=== PATIENT | female | born 1950 | race Hispanic/Latino ===

== ENCOUNTER 2020-07-18 23:01 | Inpatient (IN) | payer MEDICARE, MEDICAID, SELFPAY ==
--- NOTE | ~2020-07-18 | CT_ITS ---
EXAMINATION: CT abdomen pelvis wo con DATE: 07/19/2020 01:39 INDICATION: Abdominal pain, nausea TECHNIQUE: Computed tomography (CT) of the abdomen and pelvis was performed without intravenous contr ast. Automated exposure control and iterative reconstruction technique were employed. Exam dose: 123 5.42 mGy-cm total exam DLP. COMPARISON: 01/11/2018 KUB FINDINGS: Extensive abnormal interstitial lung disease with peripheral predominance suggesting usual interstitial pneumonia. Cardiomegaly. Coronary artery atherosclerosis. Status post cholecystectomy. No hepatic, splenic, pancreatic, and adrenal space-occupying mass lesion. Approximately 2 cm low-attenuation lower pole right renal lesion may be a cyst, with minimal peripher al calcification. Approximately 12 mm mid to lower left renal cyst is suggested. No ureteral calculus or hydroureteronephrosis. The urinary bladder is evacuated, with a Donohue cathete r, which may account for apparent thickening of the urinary bladder wall. Status post hysterectomy. There is extensive calcification of the abdominal aorta and right renal artery in particular. There a re calcifications of the celiac and superior mesenteric, left renal and inferior mesenteric arteries and iliac and femoral arteries. No abdominal aortic aneurysm. No intraperitoneal or retroperitoneal or pelvic mass lesion or adenopathy or ascites. Normal appendix. There is a prominent amount fecal material within the colon but no bowel obstruction , bowel wall thickening, pneumatosis or intraperitoneal free air. There is diverticulosis of the sigm oid colon but no CT evidence of diverticulitis. Small fat-containing left inguinal hernia. No suspicious osteolytic or osteoblastic lesions. Diffuse idiopathic skeletal hyperostosis of the tho racic spine. Prominent degenerative disease at L1-2 and moderately prominent degenerative disease at L5-S1. Promin ent degenerative change at the lumbar apophyseal joints. IMPRESSION: Cardiomegaly, coronary artery atherosclerosis Status post cholecystectomy Bilateral renal cysts Status post hysterectomy Sigmoid colon diverticulosis Normal appendix Reviewed, dictated and finalized at [facility]. Reviewed, dictated and finalized at [facility].
--- NOTE | ~2020-07-18 | US_ITS ---
US renal BI DATE: 07/19/2020 10:41 INDICATION: Acute renal failure TECHNIQUE: Real-time imaging of kidneys and urinary bladder COMPARISON: 07/19/2020 CT abdomen pelvis examination FINDINGS: Right kidney measures 9.4 cm approximate length, left kidney 9 cm. Approximately 2 cm cyst of the lower pole right kidney. No apparent renal mass lesion is noted otherw ise. No hydronephrosis of either kidney. There is a Donohue catheter within the evacuated urinary bladder which is not optimally evaluated. IMPRESSION: 2 cm lower pole right renal cyst No hydronephrosis of either kidney Reviewed, dictated and finalized at [facility] Reviewed, dictated and finalized at [facility].
[2020-07-18 23:01] VITALS: BP 130/67; PULSE 90; RESP 29; TEMP 36.6; O2SAT 100
[2020-07-18 23:11] VITALS: BP 130/67; PULSE 90; RESP 34; TEMP 36.6; O2SAT 100
--- NOTE | 2020-07-18 23:46 | ECG_ITS ---
Measurements Intervals [place] Rate: 94 P: 46 [place]: 161 QRS: -2 QRSD: 97 T: 96 QT: 320 QTc: 402 Interpretive Statements SINUS RHYTHM DELAYED PRECORDIAL R/S TRANSITION BORDERLINE ST-T WAVE ABNORMALITY- HIGH LATERAL LEADS BASELINE ARTIFACT- I, II, III, AVR, AVL, AVF, V1-V2, V4, V6 BORDERLINE ECG Electronically Signed On 07-19-2020 6:58:37 CDT by Kunal Gee D.O.
[2020-07-19] VITALS (14 sets, daily range): BP systolic 91–125; BP diastolic 42–71; PULSE 73–101; RESP 13–20; TEMP 35.8–37.1; O2SAT 97–100; BMI 38.6
[2020-07-19] MEDS: SODIUM CHLORIDE 0.9% IV 1,000 ML 500 ML IV CONT (00:46)
[2020-07-19] MEDS: fentaNYL CITRATE INJ (*CRX) 100 MCG/2 ML VIAL 50 MCG IV PUSH (00:47)
[2020-07-19 00:57] LABS: Basophils Percent Auto 0.6 % (0.2-1.2); Eosinophils Absolute Auto 0.1 K/mm3 (0-0.3); Eosinophils Percent Auto 1.1 % (0-4.4); Hematocrit 31.9 % (37.0-47.0); Hemoglobin 10.1 g/dL (12.0-15.0); Immature Granulocyte Absolute 0.02 K/mm3 (0.00-0.031); Immature Granulocyte Percent A 0.4 % (0-0.5); Lymphocytes Absolute Auto 0.99 K/mm3 (0.9-3.2); Lymphocytes Percent Auto 21.3 % (18.3-44.2); Mean Corpuscular HGB Conc 31.7 g/dl (32-36); Mean Corpuscular Hemoglobin 29.6 pg (26-34); Mean Corpuscular Volume 93.5 fl (80-100); Mean Platelet Volume 10.4 fl (7.4-10.4); Monocytes Absolute Auto 0.6 K/mm3 (0.1-0.6); Monocytes Percent Auto 13.6 % (2.6-8.5); Neutrophils Absolute Auto 2.9 K/mm3 (1.3-6.7); Platelet Count Result 165 k/mm3 (150-375); Red Blood Count 3.41 M/mm3 (4.2-5.4); Red Cell Distribution Width 15.6 % (11.5-14.5); White Blood Count 4.6 K/mm3 (4.5-10.0)
[2020-07-19 01:07] LABS: Lactic Acid Reflex 1.1 mmol/L (0.7-2.1)
[2020-07-19 01:10] LABS: Alanine Aminotransferase 13 U/L (4-35); Albumin Level 3.1 g/dL (3.5-5.1); Alkaline Phosphatase 75 U/L (38-126); Anion Gap 10 mmol/L (8-16); Aspartate Amino Transferase 27 U/L (14-36); Bilirubin,Total 0.4 mg/dL (0.2-1.3); Blood Urea Nitrogen 68 mg/dL (7-17); Calcium 9.4 mg/dL (8.4-10.2); Carbon Dioxide 17 mmol/L (22-30); Chloride 108 mmol/L (98-107); Estimated CRCL calculation 9 ml/min; Estimated Glomerular Filt Rate 8; Glucose 56 mg/dL (65-105); Sodium 135 mmol/L (137-145)
[2020-07-19 01:11] LABS: Add Urine Microscopic? YES; Appearance Urine Cloudy (Clear); Bacteria Urine 3+ /hpf; Bilirubin Urine Negative (Negative); Blood Urine 2+ (Negative); Color Urine Yellow (Yellow); Glucose Urine UA Negative (Negative); Ketones Urine Trace mg/dL (Negative); Leukocyte Esterase Ur 3+ LEU/UL (Negative); Mucus Urine Rare /lpf; Nitrate Urine Positive (Negative); Protein Urine 1+ mg/dL (Negative); RBC Urine 21-50 /hpf (0-2); Specific Grav Ur 1.014 (1.001-1.035); Squamous Epithelial Cell Urine Rare /hpf (Few); Transitional Epi Cells Urine Rare /hpf (None Seen); Urobilinogen Urine Negative mg/dL (<2.0); WBC Urine >75 /hpf
[2020-07-19 01:15] LABS: Glucose Point of Care 49 (65-105)
[2020-07-19 01:19] LABS: Troponin I < 0.012 ng/mL (0.000-0.034)
--- NOTE | 2020-07-19 01:23 | PC.NURSE ---
verbal order dr royal for dextrose 50 syringe for bs 49.
[2020-07-19] MEDS: DEXTROSE 50% 25 GM/50 ML SYRINGE IV PUSH (01:24)
[2020-07-19 01:48] LABS: Glucose Point of Care 103 (65-105)
[2020-07-19 02:13] LABS: Glucose Point of Care 94 (65-105)
--- NOTE | 2020-07-19 02:58 | PM.IMHP ---
H&P: HPI History of Present Illness Date/Time: 07/19/20 02:58 Chief Complaint: Abdominal pain Narrative: This is a 69-year-old female patient is new in our system I was unable to get much history from the patient she is a poor historian is states that she was off for weeks ago at [facility]. She comes to the emergency room due to left lower flank pain, nausea but no vomiting, will appetite, patient denies any pain or burning with urination shortness of breath no cough no sputum production no chills no fevers no rigors she had generalized malaise and weakness. Patient was found to have elevated creatinine and potassium in in a BMP and urinalysis was significant for WBCs. Review of Systems Review of Systems: Narrative: Patient presented to the emergency room due to generalized malaise and abdominal pain on the left lower quadrant Constitutional: Constitutional: Denies chills, Reports fatigue, Denies fever(s), Reports malaise and Reports weakness Eyes: Eyes: Denies change in vision ENT: Denies dysphagia, Denies vertigo, Denies dizziness and Denies nasal congestion Cardiovascular: Cardiovascular: Denies chest pain, Denies rapid heart rate, Denies edema, Denies irregular heart rhythm and Denies dyspnea Respiratory: Respiratory: Denies cough and Denies dyspnea Gastrointestinal: Gastrointestinal: Reports abdominal pain, Reports nausea and Denies vomiting Genitourinary: Genitourinary: Denies dysuria Musculoskeletal: Musculoskeletal: Denies arthralgias and Denies joint swelling Integumentary/Breasts: Skin/Breast: Denies rash Neurologic: Denies dizziness and Denies focal weakness Endocrine: Endocrine: Denies no additional endocrine complaints Hematologic/Lymphatic: Hematologic/Lymphatic: Denies no additional hematologic/lymphatic complaints Allergic/Immunologic: Allergic/Immunologic: Denies no additional allergic/immunologic complaints [facility] Family History Family History (Updated 10/03/15 @ 23:19 by DOCTOR UNKNOWN) Father Hypertension Family history of diabetes mellitus in first degree relative Family history of coronary artery disease Sibling Hypertension Family history of diabetes mellitus in first degree relative Family history of coronary artery disease Social History Social History Smoking status: Never smoker Second hand tobacco smoke exposure: No Alcohol intake: never Meds Home Medications and Allergies Allergies Allergy/AdvReac Type Severity Reaction Status Date / Time PATRIC Inhibitors Allergy Unknown Verified 08/26/09 08:18 brimonidine Allergy Unknown Legs/feet Verified 01/11/18 00:00 swelling hydromorphone Allergy Unknown low blood Verified 01/11/18 00:00 pressure metformin Allergy Unknown Verified 03/15/12 08:57 morphine Allergy Unknown Verified 04/25/15 11:59 NSAIDS (Non-Steroidal Allergy Unknown Verified 11/30/11 13:24 Anti-Inflamma pseudoephedrine Allergy Unknown Verified 04/25/15 11:59 timolol Allergy Unknown Legs/feet Verified 01/11/18 00:00 swelling METOCLOPRAMIDE HCL Allergy Unknown TARDIVE Uncoded 06/17/10 11:20 DYSKENSIA Vital Signs Vital Signs - 24 hr 07/18/20 23:01 07/18/20 23:11 Temperature 97.9 F 97.9 F Pulse Rate 90 90 Respiratory Rate 29 H 34 H Blood Pressure 130/67 130/67 Pulse Oximetry 100 100 Exam Narrative: Exam Narrative: Patient is laying in gurney Const: General: comfortable, no acute distress, well developed, alert, awake and ill appearing chronically Nutritional Appearance: overweight Orientation/consciousness: patient oriented x3 HENMT: Head: normal to inspection, normocephalic and atraumatic Ears: hearing grossly normal bilaterally Face and sinus: normal facial exam Eyes: General: appearance normal, both eyes and all related structures Pupils: Equal, round and reactive pupils present EOM: EOMs intact bilaterally Neck: Neck: full ROM, no lymphadenopathy and no JVD Thyroid: thyroid normal Lymphatic: no
[2020-07-19] MEDS: CALCIUM GLUCONATE 1,000 MG/10 ML VIAL 1000 MG IV PUSH (03:04)
[2020-07-19 03:16] LABS: Potassium 5.6 mmol/L (3.4-5.0)
--- NOTE | 2020-07-19 03:33 | PC.NURSE ---
Pt resting on cart with no complaints or concerns voiced. Call button and personal items within reach. Pt advised to press call button for assistance.
[2020-07-19] MEDS: SODIUM CHLORIDE 0.9% IV 1,000 ML 999 ML IV CONT (03:51)
--- NOTE | 2020-07-19 04:04 | PC.NURSE ---
EDMD presented to bedside to update pt on poc. All questions and concerns addressed.
--- NOTE | 2020-07-19 04:06 | ED.GENADULT ---
HPI - General Adult General Chief complaint: Abdominal Pain Stated complaint: abd pain x 1 week Time Seen by Provider: 07/18/20 23:45 History of Present Illness HPI narrative: Patient 69-year-old female presents to emergency department with chief complaint of abdominal pain. The patient was sent from a local long-term after has had hip pain for the last week patient had outpatient x-rays done at the facility and christos decided to send her to the emergency department for a CT scan. Patient states that she has had a Donohue catheter in for the last month and feels as though she has a urinary infection the patient also reports she feels extremely dry. Patient reports that history of chronic kidney disease but has never had dialysis in the past. Related Data Allergies Allergy/AdvReac Type Severity Reaction Status Date / Time PATRIC Inhibitors Allergy Unknown Verified 08/26/09 08:18 brimonidine Allergy Unknown Legs/feet Verified 01/11/18 00:00 swelling hydromorphone Allergy Unknown low blood Verified 01/11/18 00:00 pressure metformin Allergy Unknown Verified 03/15/12 08:57 morphine Allergy Unknown Verified 04/25/15 11:59 NSAIDS (Non-Steroidal Allergy Unknown Verified 11/30/11 13:24 Anti-Inflamma pseudoephedrine Allergy Unknown Verified 04/25/15 11:59 timolol Allergy Unknown Legs/feet Verified 01/11/18 00:00 swelling METOCLOPRAMIDE HCL Allergy Unknown TARDIVE Uncoded 06/17/10 11:20 DYSKENSIA Review of Systems Review of Systems: Narrative: A 10 system review of systems was completed on the patient and is negative except for what is stated in the HPI. Nursing and ancillary documentation was reviewed. [facility] Family History Family History Father Hypertension Family history of diabetes mellitus in first degree relative Family history of coronary artery disease Sibling Hypertension Family history of diabetes mellitus in first degree relative Family history of coronary artery disease Social History Social History Smoking status: Never smoker Second hand tobacco smoke exposure: No Alcohol intake: never Comments Patient has past medical history significant for hypoxic respiratory failure gastroesophageal reflux disease hypercholesterolemia anemia type 2 diabetes major depressive disorder pneumonia and anxiety disorder and hypertension The patient is a resident of local long-term Exam Narrative: Exam Narrative: GENERAL: Well-appearing, well-nourished, and in no acute distress. HEAD: Normocephalic, atraumatic. EYES: PERRLA and EOMI. ENT: Nares clear, no rhinorrhea or epistaxis. Mucous membranes moist. NECK: Supple. CHEST: Clear to auscultation. No respiratory distress. HEART: Regular rate and rhythm. No murmur heard. Normal peripheral pulses. ABDOMEN: Soft, diffuse mild tenderness, nondistended, normal active bowel sounds. EXTREMITIES: Normal range of motion. No edema. SKIN: Warm, dry, no rash. NEURO: No focal deficits. Alert and oriented x3. PSYCH: Normal mood and affect. Course Vital Signs Vital signs: Vital Signs Temperature 36.6 C 07/18/20 23:01 Pulse Rate 90 07/18/20 23:01 Respiratory Rate 29 H 07/18/20 23:01 Blood Pressure 130/67 07/18/20 23:01 Pulse Oximetry 100 07/18/20 23:01 Temperature 37.1 C 07/19/20 03:32 Pulse Rate 91 07/19/20 03:32 Respiratory Rate 16 07/19/20 03:32 Blood Pressure 91/47 L 07/19/20 03:32 Pulse Oximetry 100 07/19/20 03:32 Medical Decision Making Vital Signs Vital Signs: Vital Signs Temperature 36.6 C 07/18/20 23:01 Pulse Rate 90 07/18/20 23:01 Respiratory Rate 29 H 07/18/20 23:01 Blood Pressure 130/67 07/18/20 23:01 Pulse Oximetry 100 07/18/20 23:01 Temperature 37.1 C 07/19/20 03:32 Pulse Rate 91 07/19/20 03:32 Respiratory Rate 16 07/19/20 03:32 Blood Pre
--- NOTE | 2020-07-19 04:10 | PC.NURSE ---
Glucose 131.
[2020-07-19 04:12] LABS: Glucose Point of Care 131 (65-105)
--- NOTE | 2020-07-19 06:09 | PC.NURSE ---
report called to Ashley. Younger to send pt to floor.
--- NOTE | 2020-07-19 06:23 | ADMGEN ---
This patient, Cathy Bray, was admitted to Medical Room 341-01. Patient/family oriented to hospital policies and general routines including ID bracelet, bed and alarms, visiting hours, pain management, procedures, bathroom and other care routines, personal items, smoking policy, room service/diet, and visiting hours. Information on how to activate the Rapid Response Team has been discussed. Patient/Family are encouraged to report perceived risks to care and to ask questions if they do not understand what they are told or what they should do.
[2020-07-19] MEDS: SODIUM CHLORIDE 0.9% IV 1,000 ML 125 ML IV CONT ×2 (08:32→17:22)
[2020-07-19] MEDS: ONDANSETRON HCL ODT 4 MG TABLET 8 MG PO ×2 (10:39→18:32)
[2020-07-19] MEDS: METOPROLOL TARTRATE 50 MG TAB PO ×2 (10:49→21:09)
[2020-07-19] MEDS: APIXABAN 5 MG TABLET PO ×2 (10:49→17:29)
[2020-07-19] MEDS: FAMOTIDINE 20 MG TABLET PO ×2 (10:50→21:09)
[2020-07-19 11:55] LABS: Glucose Point of Care 80 (65-105)
[2020-07-19 11:55] LABS: Glucose Point of Care 68 (65-105)
[2020-07-19 11:55] LABS: Glucose Point of Care 73 (65-105)
--- NOTE | 2020-07-19 14:02 | PM.IMPN ---
Progress Note: A&P Assessment and Plan (1) UTI (urinary tract infection): Qualifiers: Hematuria presence: without hematuria Urinary tract infection type: site unspecified Qualified Code(s): N39.0 - Urinary tract infection, site not specified Code(s): N39.0 - Urinary tract infection, site not specified Status: Acute Assessment and Plan: Patient is on Rocephin Awaiting urine analysis culture the identification and sensitivity Deescalate antibiotics as needed 07/19/20 14:02 patient is 69-year-old female was recently discharged from [facility] after patient was treated with COVID-19, patient is seen hand spring repairer but no detail is available, at the hospital patient was found to have urinary retention and Donohue was placed or a month ago is still remains and situ, patient does complaint of dysuria and frequency her urine is suspicious for UTI with nitrite and elevated leukourea, patient is being treated with ceftriaxone, upon arrival patient has significant elevated potassium of 6, BUN of 68 and creatinine of 5.8 patient was given calcium gluconate and potassium is trending down, patient being gently hydrated, kidney ultrasound showed 2 cm lower pole right renal cyst, no hydronephrosis of either kidney. We have consulted urologist and hand spring repairer and further recommendation to follow, will get the medical record for [facility]. Patient is a poor historian unable to provide detailed review of symptom, her daughter is present who was able to provide some history (2) Acute renal failure (ARF): Qualifiers: Acute renal failure type: unspecified Qualified Code(s): N17.9 - Acute kidney failure, unspecified Code(s): N17.9 - Acute kidney failure, unspecified Status: Acute Assessment and Plan: Unknown baseline Will obtain renal ultrasound Will obtain urine lytes Nephrology consult (3) Hyperkalemia: Code(s): E87.5 - Hyperkalemia Status: Acute Assessment and Plan: Patient received calcium gluconate A repeat value is lower Continue to monitor Subjective Date/time seen: 07/19/20 14:02 patient is 69-year-old female was recently discharged from [facility] after patient was treated with COVID-19, patient is seen hand spring repairer but no detail is available, at the hospital patient was found to have urinary retention and Donohue was placed or a month ago is still remains and situ, patient does complaint of dysuria and frequency her urine is suspicious for UTI with nitrite and elevated leukourea, patient is being treated with ceftriaxone, upon arrival patient has significant elevated potassium of 6, BUN of 68 and creatinine of 5.8 patient was given calcium gluconate and potassium is trending down, patient being gently hydrated, kidney ultrasound showed 2 cm lower pole right renal cyst, no hydronephrosis of either kidney. We have consulted urologist and hand spring repairer and further recommendation to follow, will get the medical record for [facility]. Patient is a poor historian unable to provide detailed review of symptom, her daughter is present who was able to provide some history Review of Systems Review of Systems: All systems reviewed & are unremarkable except as noted in HPI and below Exam Narrative: Exam Narrative: Moderately obese Patient is comfortable, NAD HEENT: eyes are clear and none icteric LUNGS:CTA HEART: RR S1S2 ABD: BS+, diffusely tender Lower extremities: no edema SKIN: nonjaundiced Neuro: grossly intact. Objective Data Vital Signs Vital Signs: Vital Signs - 24 hr 07/18/20 23:01 07/18/20 23:11 07/19/20 03:32 Temperature 97.9 F 97.9 F 98.8 F Pulse Rate 90 90 91 Respiratory Rate 29 H 34 H 16 Blood Pressure 130/67 130/67 91/47 L Pulse Oximetry 100 100 100 07/19/20 06:15 07/19/20 06:17 07/19/20 06:58 Temperature 98.1 F 98.1 F 96.5 F L Pulse Rate 98 98 101 H Respiratory Rate 13 13 18 Blo
--- NOTE | 2020-07-19 14:43 | WPDURCON ---
Assessment and Plan Assessment and plan (1) Acute renal failure (ARF): Qualifiers: Acute renal failure type: unspecified Qualified Code(s): N17.9 - Acute kidney failure, unspecified Code(s): N17.9 - Acute kidney failure, unspecified Status: Acute Assessment and Plan: 69-year-old lady with renal insufficiency. She has a Donohue catheter in place for the past month. -patient should have her Donohue catheter changed. I spoke with the patient's nurse who will change her catheter today. Due to renal insufficiency, we will plan to leave catheter in place to monitor her I/Os. A void trial may be performed when clinically stable , as patient reports normal voiding prior to recent hospitalization - renal sufficiency to be managed by Nephrology -urine culture pending. Continue antibiotics until culture has returned -renal cyst: No additional imaging necessary Urology Consult Note HPI Date Seen: 07/19/20 Requesting Physician: Greg Silva MD Primary Care Provider: Maria Elena Salamanca, Consult Narrative Narrative: Cathy Bray is a 69 year old female recently discharged from [facility] after patient was treated with COVID-19. The patient apparently has had a catheter placed for the past month wall being treated at that facility. The patient states that prior to hospitalization she voids normally. The patient states that she had abdominal pain yesterday which has since resolved. He denies fevers chills nausea vomiting severe pain at this time. Denies shortness of breath. Denies chest pain. Review of Systems Review of Systems: All systems reviewed & are unremarkable except as noted in HPI and below PMFSH Family History Family History Father Hypertension Family history of diabetes mellitus in first degree relative Family history of coronary artery disease Sibling Hypertension Family history of diabetes mellitus in first degree relative Family history of coronary artery disease Social History Social History (Updated 07/19/20 @ 06:42 by Fabiana Crowley RN) Smoking status: Never smoker Second hand tobacco smoke exposure: No Alcohol intake: never Substance use: never Living arrangements: assisted living Gender identity (if verbalized by the patient): Female Spiritual care concerns: No Meds Home Medications and Allergies Home Medications Medication Instructions Recorded Confirmed Type acetaminophen 650 mg PO Q6H PRN 07/19/20 07/19/20 History albuterol sulfate [Ventolin HFA] 2 puff INHALATION Q4H PRN 07/19/20 07/19/20 History amitriptyline 75 mg PO HS 07/19/20 07/19/20 History amlodipine 10 mg PO DAILY 07/19/20 07/19/20 History apixaban [Eliquis] 5 mg PO BID 07/19/20 07/19/20 History atorvastatin 20 mg PO HS 07/19/20 07/19/20 History ezetimibe [Zetia] 10 mg PO HS 07/19/20 07/19/20 History famotidine 20 mg PO BID 07/19/20 07/19/20 History ferrous sulfate 325 mg PO QMWF 07/19/20 07/19/20 History furosemide 20 mg PO BID 07/19/20 07/19/20 History insulin glargine [Basaglar KwikPen 15 unit SUBCUT HS 07/19/20 07/19/20 History U-100 Insulin] lisinopril 5 mg PO DAILY 07/19/20 07/19/20 History metformin 500 mg PO BID 07/19/20 07/19/20 History metoprolol tartrate 50 mg PO BID 07/19/20 07/19/20 History ondansetron HCl [Zofran] 8 mg PO Q8H PRN 07/19/20 07/19/20 History pioglitazone [Actos] 45 mg PO DAILY 07/19/20 07/19/20 History polyethylene glycol 3350 [Miralax] 17 g PO DAILY 07/19/20 07/19/20 History potassium chloride 10 meq PO DAILY 07/19/20 07/19/20 History Allergies Allergy/AdvReac Type Severity Reaction Status Date / Time PATRIC Inhibitors Allergy Unknown Unknown Verified 07/19/20 06:48 brimonidine Allergy Unknown Legs/feet Verified 07/19/20 06:48 swelling hydromorphone Allergy Unknown low blood Verified 07/19/20 06:48 pressure metformin Allergy Unknown Unknown Verified
--- NOTE | 2020-07-19 16:08 | ECG_ITS ---
Measurements Intervals [place] Rate: 80 P: 34 [place]: 189 QRS: 5 QRSD: 92 T: 48 QT: 328 QTc: 381 Interpretive Statements SINUS RHYTHM WITH SINUS ARRHYTHMIA BASELINE ARTIFACT- I, II, III, AVR, AVF, V5 NORMAL ECG Electronically Signed On 07-19-2020 16:50:26 CDT by Kunal Gee D.O.
[2020-07-19 16:45] LABS: Magnesium 1.2 mg/dL (1.6-2.3); Potassium 5.4 mmol/L (3.4-5.0)
[2020-07-19] MEDS: SODIUM POLYSTYRENE SULFONONATE 15 GM/60 ML BTL PO (17:22)
[2020-07-19] MEDS: MAGNESIUM SULF 2 GM/WATER 50ML 2 GM/50 ML BAG IVPB (17:22)
[2020-07-19 18:23] LABS: Glucose Point of Care 96 (65-105)
[2020-07-19] MEDS: ATORVASTATIN 20 MG TABLET PO (21:08)
[2020-07-19] MEDS: EZETIMIBE 10 MG TABLET PO (21:08)
[2020-07-19] MEDS: AMITRIPTYLINE HCL 25 MG TABLET 75 MG PO (21:08)
[2020-07-19] MEDS: INSULIN GLARGINE (*BKC) 100 UNITS/ML 15 UNITS SUB-Q (21:09)
[2020-07-19 21:44] LABS: Glucose Point of Care 96 (65-105)
[2020-07-19] MEDS: SODIUM BICARBONATE 8.4% 75 MEQ in SODIUM CHLORIDE 0.45% 1,000 ML IV CONT (22:58)
[2020-07-20] VITALS (11 sets, daily range): BP systolic 110–125; BP diastolic 45–59; PULSE 65–106; RESP 17–24; TEMP 36.6–36.7; O2SAT 98–100
[2020-07-20 07:18] LABS: Basophils Percent Auto 0.5 % (0.2-1.2); Eosinophils Absolute Auto 0.1 K/mm3 (0-0.3); Eosinophils Percent Auto 1.8 % (0-4.4); Hematocrit 29.6 % (37.0-47.0); Hemoglobin 9.3 g/dL (12.0-15.0); Immature Granulocyte Absolute 0.02 K/mm3 (0.00-0.031); Immature Granulocyte Percent A 0.5 % (0-0.5); Lymphocytes Absolute Auto 0.91 K/mm3 (0.9-3.2); Mean Corpuscular HGB Conc 31.4 g/dl (32-36); Mean Corpuscular Hemoglobin 29.8 pg (26-34); Mean Corpuscular Volume 94.9 fl (80-100); Monocytes Absolute Auto 0.5 K/mm3 (0.1-0.6); Neutrophils Absolute Auto 2.2 K/mm3 (1.3-6.7); Neutrophils Percent Auto 59.2 % (45.5-73.1); Platelet Count Result 129 k/mm3 (150-375); Red Blood Count 3.12 M/mm3 (4.2-5.4); Red Cell Distribution Width 16.1 % (11.5-14.5); White Blood Count 3.8 K/mm3 (4.5-10.0)
[2020-07-20 07:34] LABS: Albumin Level 2.5 g/dL (3.5-5.1); Anion Gap 5 mmol/L (8-16); Blood Urea Nitrogen 49 mg/dL (7-17); Calcium 8.6 mg/dL (8.4-10.2); Carbon Dioxide 22 mmol/L (22-30); Chloride 114 mmol/L (98-107); Estimated CRCL calculation 14 ml/min; Estimated Glomerular Filt Rate 11; Glucose 74 mg/dL (65-105); Phosphorus 3.5 mg/dL (2.5-4.5); Potassium 4.6 mmol/L (3.4-5.0); Sodium 141 mmol/L (137-145)
[2020-07-20 08:08] LABS: Glucose Point of Care 68 (65-105)
[2020-07-20] MEDS: METOPROLOL TARTRATE 50 MG TAB PO ×2 (08:25→20:55)
[2020-07-20] MEDS: amLODIPine BESYLATE 5 MG TABLET 10 MG PO (08:25)
[2020-07-20] MEDS: FAMOTIDINE 20 MG TABLET PO ×2 (08:26→20:55)
[2020-07-20] MEDS: APIXABAN 5 MG TABLET PO ×2 (08:26→17:36)
[2020-07-20 08:47] LABS: Magnesium 1.9 mg/dL (1.6-2.3)
[2020-07-20 09:55] LABS: Glucose Point of Care 121 (65-105)
--- NOTE | 2020-07-20 11:35 | WPDGICN ---
Assessment and Plan Assessment and plan (1) Nausea and vomiting in adult: Code(s): R11.2 - Nausea with vomiting, unspecified Status: Acute Assessment and Plan: probably from dehydration, ly/uremia, gastroenteritis, etc better with treatment will do EGD to assess for ulcer, gatritis, esophagitis, etc she just recently recovered from COVID (2) Chronic anemia: Code(s): D64.9 - Anemia, unspecified Status: Acute Assessment and Plan: no signs of bleeding egd tomorrow probably from recent illness (3) Acute renal failure (ARF): Qualifiers: Acute renal failure type: unspecified Qualified Code(s): N17.9 - Acute kidney failure, unspecified Code(s): N17.9 - Acute kidney failure, unspecified Status: Acute Assessment and Plan: renal function is improving urology on board, also uti on abx (4) History of COVID-19: Code(s): Z86.16 - Personal history of COVID-19 Status: Acute (5) Diarrhea: Code(s): R19.7 - Diarrhea, unspecified Status: Acute Assessment and Plan: monitor had colonoscopy in the past per patient (6) UTI (urinary tract infection): Qualifiers: Hematuria presence: without hematuria Urinary tract infection type: site unspecified Qualified Code(s): N39.0 - Urinary tract infection, site not specified Code(s): N39.0 - Urinary tract infection, site not specified Status: Acute (7) Hyperkalemia: Code(s): E87.5 - Hyperkalemia Status: Acute (8) Thrombocytopenia: Code(s): D69.6 - Thrombocytopenia, unspecified Status: Acute Assessment and Plan: continue to monitor CT scan a/p reviewed GI Consult Note Consult date/time: 07/20/20 11:35 Reason for consult: n/v, diarrhea HPI: Cathy Bray is a 69 year old female with history of HTN, DM, GERD diagnosed with COVID pneumonia on late May admitted to [facility] for several days (had shortness of breath, n/v, lack of appetite, etc) then transferred to local half-way. She is here because more hip pain, also again nausea and vomiting, had diarrhea yesterday. She was found to be in renal failure with creatinine 5 but better after medical treatment, hb 9, platelet 120, also had CT scan a/p reviewed, showed cardiomegaly, coronary artery atherosclerosis, status post cholecystectomy, bilateral renal cysts, status post hysterectomy, sigmoid colon diverticulosis, normal appendix. She remembers having colonoscopy ~ 2 years ago elsewhere. Nausea if better. Review of Systems Constitutional: Constitutional: Reports fatigue Eyes: Eyes: Reports no additional eye complaints ENT: Reports Normal hearing present Cardiovascular: Cardiovascular: Reports no additional cardiovascular complaints Respiratory: Respiratory: Reports no additional respiratory complaints Gastrointestinal: Gastrointestinal: Reports diarrhea, Reports nausea and Reports vomiting Genitourinary: Comments: [place] in place Musculoskeletal: Musculoskeletal: Denies neck pain Integumentary/Breasts: Skin/Breast: Reports system reviewed and no additional complaints, except as docu Neurologic: Reports system reviewed and no additional complaints, except as documented Psychiatric: Psychiatric: Reports no additional psychiatric complaints PMFSH Past Medical History Medical History (Updated 07/20/20 @ 11:41 by Fadi Diana MD) Chronic anemia Diarrhea History of COVID-19 Nausea and vomiting in adult Thrombocytopenia Family History Family History Father Hypertension Family history of diabetes mellitus in first degree relative Family history of coronary artery disease Sibling Hypertension Family history of diabetes mellitus in first degree relative Family history of coronary artery disease Social History Social History (Updated 07/19/20 @ 06:42 by Fabiana Crowley RN) S
[2020-07-20 12:29] LABS: Glucose Point of Care 102 (65-105)
--- NOTE | 2020-07-20 13:28 | PM.IMPN ---
Progress Note: A&P Assessment and Plan (1) UTI (urinary tract infection): Qualifiers: Hematuria presence: without hematuria Urinary tract infection type: site unspecified Qualified Code(s): N39.0 - Urinary tract infection, site not specified Code(s): N39.0 - Urinary tract infection, site not specified Status: Acute Assessment and Plan: Patient is on Rocephin Awaiting urine analysis culture the identification and sensitivity Deescalate antibiotics as needed 07/20/20 13:28 Deescalate antibiotics as needed 07/19/20 14:02 patient is 69-year-old female was recently discharged from [facility] after patient was treated with COVID-19, patient is seen telephone supervisor but no detail is available, at the hospital patient was found to have urinary retention and London was placed or a month ago is still remains and situ, patient does complaint of dysuria and frequency her urine is suspicious for UTI with nitrite and elevated leukourea, patient is being treated with ceftriaxone, upon arrival patient has significant elevated potassium of 6, BUN of 68 and creatinine of 5.8 patient was given calcium gluconate and potassium is trending down, patient being gently hydrated, kidney ultrasound showed 2 cm lower pole right renal cyst, no hydronephrosis of either kidney. We have consulted urologist and telephone supervisor and further recommendation to follow, will get the medical record for [facility]. Patient is a poor historian unable to provide detailed review of symptom, her daughter is present who was able to provide some history. Today patient states feeling much better compared to yesterday, however complains abdominal pain and nausea after each time she eats, will consult GI for further recommendation, patient on chronic london, was seen by urologist, recommended to remove the London as patient had been able to urinate in the past, will remove the London, and the voiding trial, patient creatinine is improving will continue to gently hydrate the patient patient will be seen by Nephrology and further recommendation to follow. Urine culture is growing E coli pansensitive will continue Rocephin and monitor (2) Acute renal failure (ARF): Qualifiers: Acute renal failure type: unspecified Qualified Code(s): N17.9 - Acute kidney failure, unspecified Code(s): N17.9 - Acute kidney failure, unspecified Status: Acute Assessment and Plan: Unknown baseline Will obtain renal ultrasound Will obtain urine lytes Nephrology consult (3) Hyperkalemia: Code(s): E87.5 - Hyperkalemia Status: Acute Assessment and Plan: Patient received calcium gluconate A repeat value is lower Continue to monitor Subjective Date/time seen: 07/20/20 13:28 Deescalate antibiotics as needed 07/19/20 14:02 patient is 69-year-old female was recently discharged from [facility] after patient was treated with COVID-19, patient is seen telephone supervisor but no detail is available, at the hospital patient was found to have urinary retention and London was placed or a month ago is still remains and situ, patient does complaint of dysuria and frequency her urine is suspicious for UTI with nitrite and elevated leukourea, patient is being treated with ceftriaxone, upon arrival patient has significant elevated potassium of 6, BUN of 68 and creatinine of 5.8 patient was given calcium gluconate and potassium is trending down, patient being gently hydrated, kidney ultrasound showed 2 cm lower pole right renal cyst, no hydronephrosis of either kidney. We have consulted urologist and telephone supervisor and further recommendation to follow, will get the medical record for [facility]. Patient is a poor historian unable to provide detailed review of symptom, her daughter is present who was able to provide some history. Today patient states feeling much better compared to yesterday, however complains abdominal
[2020-07-20 14:23] LABS: Anion Gap 5 mmol/L (8-16); Blood Urea Nitrogen 47 mg/dL (7-17); Carbon Dioxide 23 mmol/L (22-30); Chloride 111 mmol/L (98-107); Estimated CRCL calculation 15 ml/min; Potassium 4.4 mmol/L (3.4-5.0); Sodium 139 mmol/L (137-145)
[2020-07-20 14:24] LABS: Albumin Level 2.6 g/dL (3.5-5.1); Calcium 8.8 mg/dL (8.4-10.2); Estimated Glomerular Filt Rate 13; Glucose 92 mg/dL (65-105); Phosphorus 3.2 mg/dL (2.5-4.5)
--- NOTE | 2020-07-20 14:45 | PM.CNNEP ---
Assessment and Plan Assessment and plan (1) Acute renal failure (ARF): Qualifiers: Acute renal failure type: unspecified Qualified Code(s): N17.9 - Acute kidney failure, unspecified Code(s): N17.9 - Acute kidney failure, unspecified Status: Acute Assessment and Plan: unclear baseline creatinine furthermore, reportedly she has an some CKD and follows with outpatient nephrology (Dr. Edwards) creatinine was as good as 1.0mg/dl by lab review during her last hospitalization several issues likely to blame: - prerenal factors - indwelling london catheter - UTI/infection - PATRIC-I and diuretic use prior to admission creatinine improving (5.6 down to 3.6mg/dl) with current therapy renal ultrasound results noted follow-up on urine electrolytes obtain records from primary offline cutter (2) Hyperkalemia: Code(s): E87.5 - Hyperkalemia Status: Acute Assessment and Plan: precipitated by #1 and ongoing potassium supplementation and PATRIC-I use responded to medical therapy bicarb gtt likely helping control as well follow trend (3) UTI (urinary tract infection): Qualifiers: Hematuria presence: without hematuria Urinary tract infection type: site unspecified Qualified Code(s): N39.0 - Urinary tract infection, site not specified Code(s): N39.0 - Urinary tract infection, site not specified Status: Acute Assessment and Plan: E.coli by urine culture on antibiotics (4) Nausea and vomiting in adult: Code(s): R11.2 - Nausea with vomiting, unspecified Status: Acute Assessment and Plan: related to VIRAL or UTI versus other GI pathology Gastroenterology follow (5) Hypertension: Code(s): I10 - Essential (primary) hypertension Status: Acute Assessment and Plan: reasonable control at this time follow hemodynamics (6) Diabetes: Code(s): E11.9 - Type 2 diabetes mellitus without complications Status: Acute Assessment and Plan: follow accuchecks glycemic control Will continue to follow. History of Present Illness Reason for Consult Consult date: 07/20/20 Reason for consult: acute renal failure (on chronic kidney disease?) Chief Complaint Chief complaint: Acute Renal Failure,UTI,Hyperkalemia,Hypoglycemia History of Present Illness Narrative: Most of the information I have obtained is from review of the electronic medical record as well as the accompanying paper chart as well as records from [facility] where she was last hospitalized about a month ago as the patient is a poor historian and unable to give specific details of her medical history as well as the events that occurred at her last hospitalization in June of 2020. The patient is a 69-year-old female with a past medical history as outlined below who presented from her nursing facility with complaints of abdominal pain. It would appear the patient was hospitalized at [facility] for several weeks in June of 2020 secondary to COVID-19 infection. I am assuming that following that protracted hospitalization, she was unsafe to go home or debilitated enough that she required placement of facility prior to discharge home. In any case, she reported to the nursing staff that she been having ongoing issues and problems with abdominal pain for the last few days and apparently the pain became so severe that the nursing staff decided to call EMS to transfer her to [facility] Emergency room for further evaluation. Aside from the a for mentioned abdominal pain, she had no other specific complaints or symptoms with regard to chest pain, shortness of breath, diarrhea, hematochezia, or melena. She does report some nausea in association with the abdominal pain particularly whenever she eats. Workup and evaluation emergency room demonstra
--- NOTE | 2020-07-20 14:45 | P.CONNP_ITS ---
Assessment and Plan Assessment and plan (1) Acute renal failure (ARF): Qualifiers: Acute renal failure type: unspecified Qualified Code(s): N17.9 - Acute kidney failure, unspecified Code(s): N17.9 - Acute kidney failure, unspecified Status: Acute Assessment and Plan: * unclear baseline creatinine * furthermore, reportedly she has an some CKD and follows with outpatient nephrology (Dr. Edwards) * creatinine was as good as 1.0mg/dl by lab review during her last hospitalization * several issues likely to blame: - prerenal factors - indwelling london catheter - UTI/infection - PATRIC-I and diuretic use prior to admission * creatinine improving (5.6 down to 3.6mg/dl) with current therapy * renal ultrasound results noted * follow-up on urine electrolytes * obtain records from primary toolmaker helper (2) Hyperkalemia: Code(s): E87.5 - Hyperkalemia Status: Acute Assessment and Plan: * precipitated by #1 and ongoing potassium supplementation and PATRIC-I use * responded to medical therapy * bicarb gtt likely helping control as well * follow trend (3) UTI (urinary tract infection): Qualifiers: Hematuria presence: without hematuria Urinary tract infection type: site unspecified Qualified Code(s): N39.0 - Urinary tract infection, site not specified Code(s): N39.0 - Urinary tract infection, site not specified Status: Acute Assessment and Plan: * E.coli by urine culture * on antibiotics (4) Nausea and vomiting in adult: Code(s): R11.2 - Nausea with vomiting, unspecified Status: Acute Assessment and Plan: * related to VIRAL or UTI versus other GI pathology * Gastroenterology follow (5) Hypertension: Code(s): I10 - Essential (primary) hypertension Status: Acute Assessment and Plan: * reasonable control at this time * follow hemodynamics (6) Diabetes: Code(s): E11.9 - Type 2 diabetes mellitus without complications Status: Acute Assessment and Plan: * follow accuchecks * glycemic control Will continue to follow. History of Present Illness Reason for Consult Consult date: 07/20/20 Reason for consult: acute renal failure (on chronic kidney disease?) Chief Complaint Chief complaint: Acute Renal Failure,UTI,Hyperkalemia,Hypoglycemia History of Present Illness Narrative: Most of the information I have obtained is from review of the electronic medical record as well as the accompanying paper chart as well as records from [facility] where she was last hospitalized about a month ago as the patient is a poor historian and unable to give specific details of her medical history as well as the events that occurred at her last hospitalization in June of 2020. The patient is a 69-year-old female with a past medical history as outlined below who presented from her nursing facility with complaints of abdominal pain. It would appear the patient was hospitalized at [facility] for several weeks in June of 2020 secondary to COVID-19 infection. I am assuming that following that protracted hospitalization, she was unsafe to go home or debilitated enough that she required placement of facility prior to discharge home. In any case, she reported to the nursing staff that she been having ongoing issues and problems with abdominal pain for the last few days and apparently the pain became so severe that the nursing staff decided to call EMS
[2020-07-20 16:31] LABS: Glucose Point of Care 96 (65-105)
[2020-07-20] MEDS: ONDANSETRON HCL ODT 4 MG TABLET 8 MG PO (17:36)
[2020-07-20] MEDS: SODIUM BICARBONATE 8.4% 75 MEQ in SODIUM CHLORIDE 0.45% 1,000 ML IV CONT (17:37)
[2020-07-20] MEDS: EZETIMIBE 10 MG TABLET PO (20:55)
[2020-07-20] MEDS: AMITRIPTYLINE HCL 25 MG TABLET 75 MG PO (20:56)
[2020-07-20] MEDS: ATORVASTATIN 20 MG TABLET PO (20:56)
[2020-07-20 21:03] LABS: Glucose Point of Care 89 (65-105)
[2020-07-21] VITALS (12 sets, daily range): BP systolic 94–138; BP diastolic 51–76; PULSE 67–98; RESP 17–20; TEMP 36.3–36.9; O2SAT 98–100
--- NOTE | 2020-07-21 | ECHO_ITS ---
Patient Info Name: Cathy Bray Age: 69 years : 1950 Gender: Female Ht: 63 in Wt: 218 lbs BSA: 2.15 m2 HR: 87 bpm BP: 125 / 59 mmHg Heart Rhythm: Sinus Rhythm Technical Quality: Good Exam Date: 07/21/2020 9:02 AM Exam Location: [facility] Pulmonary Patient Status: Inpatient Admit Date: 07/19/2020 Staff Ordering Physician: Francisco Mendoza MD Facilities Plant Engineer: Nina Gupta RDCS Attending Provider: Greg Silva MD Referring Physician: [place] ; Exam Type: CA echo doppler color flow Study Info Indications I51.7 - Cardiomegaly Complete two-dimensional, color flow and Doppler transthoracic echocardiogram is performed. Summary 1. Complete two-dimensional, color flow and Doppler transthoracic echocardiogram is performed. 2. Left ventricular chamber dimension is moderately enlarged. 3. Left ventricular systolic function is normal, estimated at 65-70%. 4. There is no increased left ventricular wall thickness. 5. The left ventricular diastolic function is grade I diastolic dysfunction. 6. Left atrial chamber dimension is mildly enlarged. 7. There is mild aortic valve stenosis with a peak velocity of 210 cm/s, mean gradient of 8 mmHg, and aortic valve area of 1.9 cm2. 8. There is mild aortic valve regurgitation. 9. There is mild mitral valve regurgitation. 10. There is mild tricuspid valve regurgitation. 11. Mild pulmonary hypertension, estimated pulmonary arterial systolic pressure is 41 mmHg. Left Ventricle Left ventricular chamber dimension is moderately enlarged. Left ventricular systolic function is normal, estimated at 65-70%. There is no increased left ventricular wall thickness. The left ventricular diastolic function is grade I diastolic dysfunction. Right Ventricle Right ventricular chamber dimension is normal. Right ventricular systolic function is normal. Left Atria Left atrial chamber dimension is mildly enlarged. Right Atria Right atrial chamber dimension is normal. Aortic Valve The aortic valve is trileaflet. There is mild aortic valve sclerosis. There is mild aortic valve stenosis with a peak velocity of 210 cm/s, mean gradient of 8 mmHg, and aortic valve area of 1.9 cm2. There is mild aortic valve regurgitation. Pulmonic Valve The pulmonic valve is not well visualized. There is trace pulmonic regurgitation. Mitral Valve The mitral valve has normal leaflets. There is mild mitral valve regurgitation. The mitral valve annulus is mildly calcified. Tricuspid Valve The tricuspid valve leaflets are normal. There is mild tricuspid valve regurgitation. Mild pulmonary hypertension, estimated pulmonary arterial systolic pressure is 41 mmHg. Pericardium/Pleural The pericardium appears normal. There is no pericardial effusion. Inferior Vena Cava Normal inferior vena cava with >50% collapse upon inspiration consistent with normal right atrial pressure, 5 mmHg. Aorta The aortic root size at the sinus of Valsalva is normal. There is moderate aortic atherosclerosis. Left Ventricular Outflow Tract Name Value Normal LVOT 2D LVOT Diameter 2.0 cm LVOT Doppler
[2020-07-21 06:05] LABS: Hematocrit 31.1 % (37.0-47.0); Hemoglobin 9.7 g/dL (12.0-15.0); Mean Corpuscular HGB Conc 31.2 g/dl (32-36); Mean Corpuscular Hemoglobin 29.7 pg (26-34); Mean Corpuscular Volume 95.1 fl (80-100); Platelet Count Result 125 k/mm3 (150-375); Red Blood Count 3.27 M/mm3 (4.2-5.4); Red Cell Distribution Width 15.9 % (11.5-14.5); White Blood Count 3.8 K/mm3 (4.5-10.0)
[2020-07-21 06:20] LABS: Albumin Level 2.6 g/dL (3.5-5.1); Anion Gap 2 mmol/L (8-16); Blood Urea Nitrogen 39 mg/dL (7-17); Calcium 8.8 mg/dL (8.4-10.2); Carbon Dioxide 25 mmol/L (22-30); Chloride 110 mmol/L (98-107); Estimated CRCL calculation 18 ml/min; Estimated Glomerular Filt Rate 15; Glucose 96 mg/dL (65-105); Magnesium 1.6 mg/dL (1.6-2.3); Phosphorus 3.1 mg/dL (2.5-4.5); Potassium 4.1 mmol/L (3.4-5.0); Sodium 137 mmol/L (137-145)
--- NOTE | 2020-07-21 06:30 | P.PNNP_ITS ---
Progress Note: A&P Assessment and Plan (1) Acute renal failure (ARF): Qualifiers: Acute renal failure type: unspecified Qualified Code(s): N17.9 - Acute kidney failure, unspecified Code(s): N17.9 - Acute kidney failure, unspecified Status: Acute Assessment and Plan: * CKD * follows with Dr Edwards. possibly due to HTN, DM. * unknown baseline. await records. * VIRAL * several issues likely to blame: - prerenal factors. pt had n/v for several days before admission. - indwelling london catheter and associated UTI/infection - PATRIC-I and diuretic use prior to admission * creatinine improving. today down to 3.1 * london is out. passing urine. * renal ultrasound no hydro. one cyst. * follow-up on urine electrolytes. not yet collected. * continue ivfs for now. * obtain records from primary stonework supervisor (2) Hyperkalemia: Code(s): E87.5 - Hyperkalemia Status: Acute Assessment and Plan: * precipitated by dehydration, VIRAL, and ongoing potassium supplementation and PATRIC-I use * resolved. (3) UTI (urinary tract infection): Qualifiers: Hematuria presence: without hematuria Urinary tract infection type: site unspecified Qualified Code(s): N39.0 - Urinary tract infection, site not specified Code(s): N39.0 - Urinary tract infection, site not specified Status: Acute Assessment and Plan: * E.coli by urine culture * on ceftriaxone. (4) Nausea and vomiting in adult: Code(s): R11.2 - Nausea with vomiting, unspecified Status: Acute Assessment and Plan: * related to VIRAL or UTI versus other GI pathology * Gastroenterology follow (5) Hypertension: Code(s): I10 - Essential (primary) hypertension Status: Acute Assessment and Plan: * systolic running 110-125 * on amlodipine and metoprolol (6) Diabetes: Code(s): E11.9 - Type 2 diabetes mellitus without complications Status: Acute Assessment and Plan: * follow accuchecks * glycemic control (7) Acidosis: Code(s): E87.2 - Acidosis Status: Acute Assessment and Plan: at first thought to be NAGMA but actually, now AG is only 2. albumin low but not that low. will check immunfixation as myeloma can give a low ag. CO2 now okay. will stop bicarb and switch to saline. Subjective Date/time seen: 07/21/20 06:30 Interval history: patient is feeling okay. slept pretty well but still tired. ate well yesterday. no cp or sob. Review of Systems Cardiovascular: Cardiovascular: Reports no additional cardiovascular c omplaints Respiratory: Respiratory: Reports no additional respiratory complaints Gastrointestinal: Gastrointestinal: Reports no additional gastrointestinal complaints Genitourinary: Genitourinary: Reports no additional female genitourinary complaints Exam Narrative: Exam Narrative: WDWN in NAD skin no rash head ncat lungs clear cor reg no rub. 2/6 chad. abd BS+ nontender and soft ext no edema. Objective Data Vital Signs Vital Signs: Vital Signs - 24 hr 07/20/20 08:00 07/20/20 08:25 07/20/20 12:00 Temperature Pulse Rate 83 89 74 Respiratory Rate Blood Pressure Pulse Oximetry 07/20/20 14:00 07/20/20
--- NOTE | 2020-07-21 06:30 | PM.PNNEP ---
Progress Note: A&P Assessment and Plan (1) Acute renal failure (ARF): Qualifiers: Acute renal failure type: unspecified Qualified Code(s): N17.9 - Acute kidney failure, unspecified Code(s): N17.9 - Acute kidney failure, unspecified Status: Acute Assessment and Plan: CKD follows with Dr Edwards. possibly due to HTN, DM. unknown baseline. await records. VIRAL several issues likely to blame: - prerenal factors. pt had n/v for several days before admission. - indwelling london catheter and associated UTI/infection - PATRIC-I and diuretic use prior to admission creatinine improving. today down to 3.1 london is out. passing urine. renal ultrasound no hydro. one cyst. follow-up on urine electrolytes. not yet collected. continue ivfs for now. obtain records from primary foreign agent (2) Hyperkalemia: Code(s): E87.5 - Hyperkalemia Status: Acute Assessment and Plan: precipitated by dehydration, VIRAL, and ongoing potassium supplementation and PATRIC-I use resolved. (3) UTI (urinary tract infection): Qualifiers: Hematuria presence: without hematuria Urinary tract infection type: site unspecified Qualified Code(s): N39.0 - Urinary tract infection, site not specified Code(s): N39.0 - Urinary tract infection, site not specified Status: Acute Assessment and Plan: E.coli by urine culture on ceftriaxone. (4) Nausea and vomiting in adult: Code(s): R11.2 - Nausea with vomiting, unspecified Status: Acute Assessment and Plan: related to VIRAL or UTI versus other GI pathology Gastroenterology follow (5) Hypertension: Code(s): I10 - Essential (primary) hypertension Status: Acute Assessment and Plan: systolic running 110-125 on amlodipine and metoprolol (6) Diabetes: Code(s): E11.9 - Type 2 diabetes mellitus without complications Status: Acute Assessment and Plan: follow accuchecks glycemic control (7) Acidosis: Code(s): E87.2 - Acidosis Status: Acute Assessment and Plan: at first thought to be NAGMA but actually, now AG is only 2. albumin low but not that low. will check immunfixation as myeloma can give a low ag. CO2 now okay. will stop bicarb and switch to saline. Subjective Date/time seen: 07/21/20 06:30 Interval history: patient is feeling okay. slept pretty well but still tired. ate well yesterday. no cp or sob. Review of Systems Cardiovascular: Cardiovascular: Reports no additional cardiovascular complaints Respiratory: Respiratory: Reports no additional respiratory complaints Gastrointestinal: Gastrointestinal: Reports no additional gastrointestinal complaints Genitourinary: Genitourinary: Reports no additional female genitourinary complaints Exam Narrative: Exam Narrative: WDWN in NAD skin no rash head ncat lungs clear cor reg no rub. 2/6 chad. abd BS+ nontender and soft ext no edema. Objective Data Vital Signs Vital Signs: Vital Signs - 24 hr 07/20/20 08:00 07/20/20 08:25 07/20/20 12:00 Temperature Pulse Rate 83 89 74 Respiratory Rate Blood Pressure Pulse Oximetry 07/20/20 14:00 07/20/20 16:00 07/20/20 20:00 Temperature 36.7 C Pulse Rate 87 85 89 Respiratory Rate 20 Blood Pressure 118/45 L Pulse Oximetry 100 07/20/20 20:55 07/20/20 22:00 07/21/20 00:00 Temperature 36.6 C Pulse Rate 85 106 H 67 Respiratory Rate 24 H Blood Pressure 125/59 L Pulse Oximetry 99 07/21/20 04:00 07/21/20 06:00 Temperature 36.4 C Pulse Rate 83 98 Respiratory Rate 18 Blood Pressure 121/63 Pulse Oximetry 98 Intake/Output Intake/Output: Intake & Output 07/18/20 07/19/20 07/20/20 07/21/20 23:59 23:59 23:59 23:59 Intake Total 3790 1943 100 Output Total 300 900 450 0 Balance -300 2890 1493 100 Meds/Results Medic
[2020-07-21 07:04] LABS: Glucose Point of Care 85 (65-105)
[2020-07-21] MEDS: SODIUM CHLORIDE 0.9% IV 1,000 ML 75 ML IV CONT (08:36)
[2020-07-21] MEDS: METOPROLOL TARTRATE 50 MG TAB PO ×2 (08:38→20:04)
[2020-07-21] MEDS: amLODIPine BESYLATE 5 MG TABLET 10 MG PO (08:38)
[2020-07-21] MEDS: APIXABAN 5 MG TABLET PO ×2 (08:39→17:11)
[2020-07-21 09:38] LABS: Creatinine Urine 65.8 mg/dL; Total Protein Urine Random 16 mg/dL; Ur Ttl Prot Creatinine Ratio 0.24 mg/mg (0-0.20)
[2020-07-21 09:43] LABS: Sodium Urine Random 64 meq/L
[2020-07-21 10:17] LABS: Eosinophil Urine None Seen % (None Seen)
[2020-07-21] MEDS: ONDANSETRON HCL ODT 4 MG TABLET 8 MG PO (11:16)
--- NOTE | 2020-07-21 11:17 | PC.NURSE ---
Pt to GI lab per anabel.
[2020-07-21] MEDS: LACTATED RINGERS 1,000 ML 150 ML IV CONT (11:41)
--- NOTE | 2020-07-21 11:46 | WPDANESEPPF ---
Anes - Initial Pre Proc Eval Procedure: Operation Date: 07/21/20 14:00 Proposed Procedures p Esophagogastroduodenoscopy - Fadi Diana MD Date/Time: 07/21/20 11:46 Surgeon: Greg Silva MD Pre Op Diagnosis: Acute Renal Failure,UTI,Hyperkalemia,Hypoglycemia Patient Data Age: 69 Gender: F Height: 5 ft 3 in Weight: 99 kg Last Vital Signs Temp 98.4 F 07/21/20 11:33 Pulse 87 07/21/20 11:33 Resp 20 07/21/20 11:33 BP 138/65 07/21/20 11:33 Pulse Ox 100 07/21/20 11:33 Allergies Allergy/AdvReac Type Severity Reaction Status Date / Time PATRIC Inhibitors Allergy Unknown Unknown Verified 07/21/20 11:32 brimonidine Allergy Unknown Legs/feet Verified 07/21/20 11:32 swelling hydromorphone Allergy Unknown low blood Verified 07/21/20 11:32 pressure metformin Allergy Unknown Unknown Verified 07/21/20 11:32 metoclopramide Allergy Unknown TARDIVE Verified 07/21/20 11:32 DYSKINESIA morphine Allergy Unknown Hives Verified 07/21/20 11:32 NSAIDS (Non-Steroidal Allergy Unknown Unknown Verified 07/21/20 11:32 Anti-Inflamma pseudoephedrine Allergy Unknown Unknown Verified 07/21/20 11:32 timolol Allergy Unknown Legs/feet Verified 07/21/20 11:32 swelling Home Medications Medication Instructions Recorded Confirmed Type acetaminophen 650 mg PO Q6H PRN 07/19/20 07/21/20 History albuterol sulfate [Ventolin HFA] 2 puff INHALATION Q4H PRN 07/19/20 07/21/20 History amitriptyline 75 mg PO HS 07/19/20 07/21/20 History amlodipine 10 mg PO DAILY 07/19/20 07/21/20 History apixaban [Eliquis] 5 mg PO BID 07/19/20 07/21/20 History atorvastatin 20 mg PO HS 07/19/20 07/21/20 History ezetimibe [Zetia] 10 mg PO HS 07/19/20 07/21/20 History famotidine 20 mg PO BID 07/19/20 07/21/20 History ferrous sulfate 325 mg PO QMWF 07/19/20 07/21/20 History furosemide 20 mg PO BID 07/19/20 07/21/20 History insulin glargine [Basaglar KwikPen 15 unit SUBCUT HS 07/19/20 07/21/20 History U-100 Insulin] lisinopril 5 mg PO DAILY 07/19/20 07/21/20 History metformin 500 mg PO BID 07/19/20 07/21/20 History metoprolol tartrate 50 mg PO BID 07/19/20 07/21/20 History ondansetron HCl [Zofran] 8 mg PO Q8H PRN 07/19/20 07/21/20 History pioglitazone [Actos] 45 mg PO DAILY 07/19/20 07/21/20 History polyethylene glycol 3350 [Miralax] 17 g PO DAILY 07/19/20 07/21/20 History potassium chloride 10 meq PO DAILY 07/19/20 07/21/20 History Laboratory Tests 07/20/20 07/20/20 07/20/20 12:08 14:02 16:22 WBC RBC Hgb Hct MCV MCH MCHC RDW Plt Count MPV Sodium 139 mmol/L mmol/L (137-145) Potassium 4.4 mmol/L mmol/L (3.4-5.0) Chloride 111 mmol/L H mmol/L (98-107) Carbon Dioxide 23 mmol/L mmol/L (22-30) Anion Gap 5 mmol/L L mmol/L (8-16) BUN 47 mg/dL H mg/dL (7-17) Creatinine 3.60 mg/dL H mg/dL (0.7-1.0) Estim Creat Clear Calc 15 ml/min ml/min Estimated GFR 13 L (59 - ) Glucose 92 mg/dL mg/dL (65-105) POC Capillary Glucose 102 mg/dl mg/dl 96 mg/dl mg/dl (65-105) (65-105) Calcium 8.8 mg/dL mg/dL (8.4-10.2) Phosphorus 3.2 mg/dL mg/dL (2.5-4.5) Magnesium Albumin 2.6 g/dL L g/dL (3.5-5.1) Urine Eosinophils Ur Random Creatinine U Random Total Protein Ur Random Sodium Ur Random Chloride U Random Chloride/Creat Urine Creatinine Protein/Creat Ratio 2 Serum Immunofixation Urine Immunofixation [place]/Lambda Ratio Free [place] Light Chains Free Lambda Light Chain 07/20/20 07/21/20 07/21/20 20:55 05:49 05:49 WBC 3.8 K/mm3 L K/mm3 (4.5-10.0) RBC 3.27 M/mm3 L M/mm3
--- NOTE | 2020-07-21 13:28 | PC.NURSE ---
Pt returned from GI lab per bed.
[2020-07-21 16:32] LABS: Glucose Point of Care 93 (65-105)
--- NOTE | 2020-07-21 17:07 | PM.IMPN ---
Progress Note: A&P Assessment and Plan (1) UTI (urinary tract infection): Qualifiers: Hematuria presence: without hematuria Urinary tract infection type: site unspecified Qualified Code(s): N39.0 - Urinary tract infection, site not specified Code(s): N39.0 - Urinary tract infection, site not specified Status: Acute Assessment and Plan: Patient is on Rocephin Awaiting urine analysis culture the identification and sensitivity Deescalate antibiotics as needed 07/21/20 17:07 07/19/20 14:02 patient is 69-year-old female was recently discharged from [facility] after patient was treated with COVID-19, patient is seen sales and marketing administrator but no detail is available, at the hospital patient was found to have urinary retention and [place] was placed or a month ago is still remains and situ, patient does complaint of dysuria and frequency her urine is suspicious for UTI with nitrite and elevated leukourea, patient is being treated with ceftriaxone, upon arrival patient has significant elevated potassium of 6, BUN of 68 and creatinine of 5.8 patient was given calcium gluconate and potassium is trending down, patient being gently hydrated, kidney ultrasound showed 2 cm lower pole right renal cyst, no hydronephrosis of either kidney. We have consulted urologist and sales and marketing administrator and further recommendation to follow, will get the medical record for [facility]. Patient is a poor historian unable to provide detailed review of symptom, her daughter is present who was able to provide some history. 07/20 patient states feeling much better compared to yesterday, however complains abdominal pain and nausea after each time she eats, will consult GI for further recommendation, patient on chronic london, was seen by urologist, recommended to remove the [place] as patient had been able to urinate in the past, will remove the [place], and the voiding trial, patient creatinine is improving will continue to gently hydrate the patient patient will be seen by Nephrology and further recommendation to follow. Urine culture is growing E coli pansensitive will continue Rocephin and monitor 07/21 today patient states feeling much better and participating in physical therapy, patient had a EGD showed gastritis and reflux esophagitis patient started on Protonix 40 mg b.i.d., seen by Nephrology suspect prerenal cause of acute kidney injury from persistent vomiting, indwelling catheter and UTI, patient creatinine is improved recommended to continue to hydrate the patient, will continue to monitor the patient and further recommendation to follow. (2) Acute renal failure (ARF): Qualifiers: Acute renal failure type: unspecified Qualified Code(s): N17.9 - Acute kidney failure, unspecified Code(s): N17.9 - Acute kidney failure, unspecified Status: Acute Assessment and Plan: Unknown baseline Will obtain renal ultrasound Will obtain urine lytes Nephrology consult (3) Hyperkalemia: Code(s): E87.5 - Hyperkalemia Status: Acute Assessment and Plan: Patient received calcium gluconate A repeat value is lower Continue to monitor Subjective Date/time seen: 07/21/20 17:07 07/19/20 14:02 patient is 69-year-old female was recently discharged from [facility] after patient was treated with COVID-19, patient is seen sales and marketing administrator but no detail is available, at the hospital patient was found to have urinary retention and [place] was placed or a month ago is still remains and situ, patient does complaint of dysuria and frequency her urine is suspicious for UTI with nitrite and elevated leukourea, patient is being treated with ceftriaxone, upon arrival patient has significant elevated potassium of 6, BUN of 68 and creatinine of 5.8 patient was given calcium gluconate and potassium is trending down, patient being gently hydrated, kidney ultrasound showed 2 cm lower pole right renal cyst, no hydronephro
[2020-07-21] MEDS: PANTOPRAZOLE 40 MG TABLET PO ×2 (17:11→20:04)
[2020-07-21 18:39] LABS: Creatinine Urine 66.9 mg/dL
[2020-07-21 19:54] LABS: Glucose Point of Care 84 (65-105)
[2020-07-21] MEDS: AMITRIPTYLINE HCL 25 MG TABLET 75 MG PO (20:04)
[2020-07-21] MEDS: ATORVASTATIN 20 MG TABLET PO (20:04)
[2020-07-21] MEDS: EZETIMIBE 10 MG TABLET PO (20:04)
[2020-07-22] VITALS (11 sets, daily range): BP systolic 110–133; BP diastolic 44–48; PULSE 67–88; RESP 16–18; TEMP 36.4–36.7; O2SAT 96–99
[2020-07-22 05:44] LABS: Glucose Point of Care 67 (65-105)
[2020-07-22 05:48] LABS: Hematocrit 29.6 % (37.0-47.0); Hemoglobin 9.1 g/dL (12.0-15.0); Mean Corpuscular HGB Conc 30.7 g/dl (32-36); Mean Corpuscular Hemoglobin 29.4 pg (26-34); Mean Corpuscular Volume 95.5 fl (80-100); Mean Platelet Volume 10.5 fl (7.4-10.4); Platelet Count Result 127 k/mm3 (150-375); White Blood Count 4.4 K/mm3 (4.5-10.0)
[2020-07-22 05:58] LABS: Albumin Level 2.4 g/dL (3.5-5.1); Anion Gap 2 mmol/L (8-16); Blood Urea Nitrogen 28 mg/dL (7-17); Calcium 8.4 mg/dL (8.4-10.2); Carbon Dioxide 25 mmol/L (22-30); Chloride 110 mmol/L (98-107); Estimated CRCL calculation 22 ml/min; Estimated Glomerular Filt Rate 19; Glucose 80 mg/dL (65-105); Magnesium 1.4 mg/dL (1.6-2.3); Phosphorus 2.8 mg/dL (2.5-4.5); Potassium 4.1 mmol/L (3.4-5.0); Sodium 137 mmol/L (137-145)
--- NOTE | 2020-07-22 06:09 | P.PNNP_ITS ---
Progress Note: A&P Assessment and Plan (1) Acute renal failure (ARF): Qualifiers: Acute renal failure type: unspecified Qualified Code(s): N17.9 - Acute kidney failure, unspecified Code(s): N17.9 - Acute kidney failure, unspecified Status: Acute Assessment and Plan: * CKD * follows with Dr Edwards. possibly due to HTN, DM. * some records came. creat 1.4 on 06/07 * VIRAL * several issues likely to blame: - prerenal factors. pt had n/v for several days before admission. - indwelling london catheter and associated UTI/infection - PATRIC-I and diuretic use prior to admission * creatinine improving. today down to 2.5 * london is out. passing urine. * renal ultrasound no hydro. one cyst. * urine 'lytes nonprerenal but was on diuretics. * Ueos neg * continue ivfs for now. * obtain records from [employer] (2) Hyperkalemia: Code(s): E87.5 - Hyperkalemia Status: Acute Assessment and Plan: * precipitated by dehydration, VIRAL, and ongoing potassium supplementation and PATRIC-I use * resolved. (3) UTI (urinary tract infection): Qualifiers: Hematuria presence: without hematuria Urinary tract infection type: site unspecified Qualified Code(s): N39.0 - Urinary tract infection, site not specified Code(s): N39.0 - Urinary tract infection, site not specified Status: Acute Assessment and Plan: * E.coli by urine culture * on ceftriaxone. (4) Nausea and vomiting in adult: Code(s): R11.2 - Nausea with vomiting, unspecified Status: Acute Assessment and Plan: * related to VIRAL or UTI versus other GI pathology * Gastroenterology follow (5) Hypertension: Code(s): I10 - Essential (primary) hypertension Status: Acute Assessment and Plan: * systolic running 110-125 * on amlodipine and metoprolol * continue same tx (6) Diabetes: Code(s): E11.9 - Type 2 diabetes mellitus without complications Status: Acute Assessment and Plan: * follow accuchecks * glycemic control (7) Acidosis: Code(s): E87.2 - Acidosis Status: Acute Assessment and Plan: CO2 is good AG is only 2. checking for paraproteins. Subjective Date/time seen: 07/22/20 06:09 Interval history: patient is feeling okay. slept well. Bowels are okay sat up in a chair yesterday and walked to the bathroom. ate well yesterday. no cp or sob. Review of Systems Cardiovascular: Cardiovascular: Reports no additional cardiovascular complaints Respiratory: Respiratory: Reports no additional respiratory complaints Gastrointestinal: Gastrointestinal: Reports no additional gastrointestinal complaints Genitourinary: Genitourinary: Reports no additional female genitourinary complaints Exam Narrative: Exam Narrative: WDWN in NAD skin no rash head ncat lungs clear to ausc cor reg no rub. 2/6 chad. abd BS+ nontender and soft ext no edema or cyanosis. Objective Data Vital Signs Vital Signs: Vital Signs - 24 hr 07/21/20 08:00 07/21/20 08:38 07/21/20 11:33 Temperature 36.9 C Pulse Rate 87 87 87 Respiratory Rate 20 Blood Pressure 138/65 Pulse Oximetry 100 07/21/20 12:48 07/21/20 12:58 07/21/20
--- NOTE | 2020-07-22 06:09 | PM.PNNEP ---
Progress Note: A&P Assessment and Plan (1) Acute renal failure (ARF): Qualifiers: Acute renal failure type: unspecified Qualified Code(s): N17.9 - Acute kidney failure, unspecified Code(s): N17.9 - Acute kidney failure, unspecified Status: Acute Assessment and Plan: CKD follows with Dr Edwards. possibly due to HTN, DM. some records came. creat 1.4 on 06/07 VIRAL several issues likely to blame: - prerenal factors. pt had n/v for several days before admission. - indwelling london catheter and associated UTI/infection - PATRIC-I and diuretic use prior to admission creatinine improving. today down to 2.5 london is out. passing urine. renal ultrasound no hydro. one cyst. urine 'lytes nonprerenal but was on diuretics. Ueos neg continue ivfs for now. obtain records from [employer] (2) Hyperkalemia: Code(s): E87.5 - Hyperkalemia Status: Acute Assessment and Plan: precipitated by dehydration, VIRAL, and ongoing potassium supplementation and PATRIC-I use resolved. (3) UTI (urinary tract infection): Qualifiers: Hematuria presence: without hematuria Urinary tract infection type: site unspecified Qualified Code(s): N39.0 - Urinary tract infection, site not specified Code(s): N39.0 - Urinary tract infection, site not specified Status: Acute Assessment and Plan: E.coli by urine culture on ceftriaxone. (4) Nausea and vomiting in adult: Code(s): R11.2 - Nausea with vomiting, unspecified Status: Acute Assessment and Plan: related to VIRAL or UTI versus other GI pathology Gastroenterology follow (5) Hypertension: Code(s): I10 - Essential (primary) hypertension Status: Acute Assessment and Plan: systolic running 110-125 on amlodipine and metoprolol continue same tx (6) Diabetes: Code(s): E11.9 - Type 2 diabetes mellitus without complications Status: Acute Assessment and Plan: follow accuchecks glycemic control (7) Acidosis: Code(s): E87.2 - Acidosis Status: Acute Assessment and Plan: CO2 is good AG is only 2. checking for paraproteins. Subjective Date/time seen: 07/22/20 06:09 Interval history: patient is feeling okay. slept well. Bowels are okay sat up in a chair yesterday and walked to the bathroom. ate well yesterday. no cp or sob. Review of Systems Cardiovascular: Cardiovascular: Reports no additional cardiovascular complaints Respiratory: Respiratory: Reports no additional respiratory complaints Gastrointestinal: Gastrointestinal: Reports no additional gastrointestinal complaints Genitourinary: Genitourinary: Reports no additional female genitourinary complaints Exam Narrative: Exam Narrative: WDWN in NAD skin no rash head ncat lungs clear to ausc cor reg no rub. 04/12 chad. abd BS+ nontender and soft ext no edema or cyanosis. Objective Data Vital Signs Vital Signs: Vital Signs - 24 hr 07/21/20 08:00 07/21/20 08:38 07/21/20 11:33 Temperature 36.9 C Pulse Rate 87 87 87 Respiratory Rate 20 Blood Pressure 138/65 Pulse Oximetry 100 07/21/20 12:48 07/21/20 12:58 07/21/20 13:08 Temperature Pulse Rate 76 74 78 Respiratory Rate 20 20 20 Blood Pressure 110/52 L 94/51 L 110/59 L Pulse Oximetry 98 98 98 07/21/20 19:43 07/21/20 20:00 07/21/20 20:04 Temperature 36.3 C L Pulse Rate 92 93 92 Respiratory Rate 17 Blood Pressure 117/76 Pulse Oximetry 99 07/22/20 00:00 07/22/20 04:00 07/22/20 05:36 Temperature 36.5 C Pulse Rate 72 78 81 Respiratory Rate 16 Blood Pressure 110/44 L Pulse Oximetry 96 Intake/Output Intake/Output: Intake & Output 07/19/20 07/20/20 07/21/20 07/22/20 23:59 23:59 23:59 23:59 Intake Total 3790 1943 150 240 Output Total 020 011 4522 Balance 2890 1493 -1150 240 Meds/Results
[2020-07-22] MEDS: SODIUM CHLORIDE 0.9% IV 1,000 ML 75 ML IV CONT ×2 (06:19→22:35)
[2020-07-22 06:22] LABS: Glucose Point of Care 105 (65-105)
--- NOTE | 2020-07-22 08:49 | WPDANESPN ---
Anes - Prog Note Post-Op Date/Time: 07/22/20 08:49 Cardiovascular status: normal Respiratory status: normal Airway patency: baseline Mental status: baseline Post-Op hydration status: normal Vital Signs: Last Vital Signs Temp 36.5 C 07/22/20 05:36 Pulse 81 07/22/20 05:36 Resp 16 07/22/20 05:36 BP 110/44 L 07/22/20 05:36 Pulse Ox 96 07/22/20 05:36 Pain Score (VAS): 0 I/O: Intake & Output 07/21/20 07/22/20 07/22/20 23:59 07:59 15:59 Intake Total 50 1240 Output Total 700 Balance -650 1240 Laboratory Tests 07/22/20 05:30 07/22/20 05:30 07/21/20 07/21/20 07/21/20 09:03 09:03 09:03 WBC RBC Hgb Hct MCV MCH MCHC RDW Plt Count MPV Sodium Potassium Chloride Carbon Dioxide Anion Gap BUN Creatinine Estim Creat Clear Calc Estimated GFR Glucose POC Capillary Glucose Calcium Phosphorus Magnesium Albumin Urine Eosinophils None seen Ur Random Creatinine Pending U Random Total Protein 16 Ur Random Sodium 64 Ur Random Chloride Pending U Random Chloride/Creat Pending Urine Creatinine 65.8 66.9 Protein/Creat Ratio 2 0.24 H Serum Immunofixation Urine Immunofixation [place]/Lambda Ratio Free [place] Light Chains Free Lambda Light Chain SARS-CoV-2 RNA (RT-PCR) 07/21/20 07/21/20 07/21/20 09:03 09:06 14:40 WBC RBC Hgb Hct MCV MCH MCHC RDW Plt Count MPV Sodium Potassium Chloride Carbon Dioxide Anion Gap BUN Creatinine Estim Creat Clear Calc Estimated GFR Glucose POC Capillary Glucose Calcium Phosphorus Magnesium Albumin Urine Eosinophils Ur Random Creatinine U Random Total Protein Ur Random Sodium Ur Random Chloride U Random Chloride/Creat Urine Creatinine Protein/Creat Ratio 2 Serum Immunofixation Pending Urine Immunofixation Pending [place]/Lambda Ratio Pending Free [place] Light Chains Pending Free Lambda Light Chain Pending SARS-CoV-2 RNA (RT-PCR) Pending 07/21/20 07/21/20 07/22/20 16:24 19:46 05:30 WBC 4.4 L RBC 3.10 L Hgb 9.1 L Hct 29.6 L MCV 95.5 MCH 29.4 MCHC 30.7 L RDW 16.0 H Plt Count 127 L MPV 10.5 H Sodium Potassium Chloride Carbon Dioxide Anion Gap BUN Creatinine Estim Creat Clear Calc Estimated GFR Glucose POC Capillary Glucose 93 84 Calcium Phosphorus Magnesium Albumin Urine Eosinophils Ur Random Creatinine U Random Total Protein Ur Random Sodium Ur Random Chloride U Random Chloride/Creat Urine Creatinine Protein/Creat Ratio 2 Serum Immunofixation Urine Immunofixation [place]/Lambda Ratio Free [place] Light Chains Free Lambda Light Chain SARS-CoV-2 RNA (RT-PCR) 07/22/20 07/22/20 07/22/20 05:30 05:38 06:19 WBC RBC Hgb Hct MCV MCH MCHC RDW Plt Count MPV Sodium 137 Potassium 4.1 Chloride 110 H Carbon Dioxide 25 Anion Gap 2 L BUN 28 H D Creatinine 2.50 H Estim Creat Clear Calc 22 Estimated GFR 19 L Glucose 80 POC Capillary Glucose 67 105 Calcium 8.4 Phosphorus 2.8 Magnesium 1.4 L Albumin 2.4 L Urine Eosinophils Ur Random Creatinine U Random Total Protein Ur Random Sodium Ur Random Chloride U Random Chloride/Creat Urine Creatinine Protein/Creat Ratio 2 Serum Immunofixation Urine Immunofixation [place]/Lambda Ratio Free [place] Light Chains Free Lambda Light Chain SARS-CoV-2 RNA (RT-PCR) Post-procedural complaints: none Patient Feedback: Patient satisfied with anesthetic care.
--- NOTE | 2020-07-22 08:51 | P.CDI_ITS ---
CDI Query Clarification Request -UTI has been documented -Documentation that pt has had an indwelling london catheter in place for the past month. Please clarify if the UTI is: * Caused by/associated with the indwelling london catheter * Not caused by/associated with the indwelling l[place] catheter * Unable to determine <Cathy García RN - Last Filed: 07/22/20 08:55> Clarified Diagnosis (1) UTI (urinary tract infection): Qualifiers: Hematuria presence: without hematuria Urinary tract infection type: site unspecified Qualified Code(s): N39.0 - Urinary tract infection, site not specified <Cathy García RN - Last Filed: 07/22/20 08:55> Code(s): N39.0 - Urinary tract infection, site not specified <Cathy García RN - Last Filed: 07/22/20 08:55> Status: Acute <Cathy García RN - Last Filed: 07/22/20 08:55> Assessment and Plan: UTI present on arrival most likely 2/2 indwelling [place] catheter <Francisco Mendoza MD - Last Filed: 07/22/20 15:46>
[2020-07-22] MEDS: MAGNESIUM SULF 2 GM/WATER 50ML 2 GM/50 ML BAG IVPB (09:39)
[2020-07-22] MEDS: METOPROLOL TARTRATE 50 MG TAB PO ×2 (09:41→22:34)
[2020-07-22] MEDS: PIOGLITAZONE HCL 45 MG TABLET PO (09:41)
[2020-07-22] MEDS: PANTOPRAZOLE 40 MG TABLET PO ×2 (09:41→22:35)
[2020-07-22] MEDS: amLODIPine BESYLATE 5 MG TABLET 10 MG PO (09:41)
[2020-07-22] MEDS: APIXABAN 5 MG TABLET PO ×2 (09:41→17:23)
[2020-07-22 11:48] LABS: Glucose Point of Care 130 (65-105)
--- NOTE | 2020-07-22 13:29 | WPDGIPROGNO ---
Progress Note: A&P Assessment and Plan (1) Nausea and vomiting in adult: Code(s): R11.2 - Nausea with vomiting, unspecified Status: Acute Assessment and Plan: probably multifactorial from VIRAL, DM, also had some gastritis diet as tolerated antiemetics prn (2) Gastritis: Code(s): K29.70 - Gastritis, unspecified, without bleeding Status: Acute Assessment and Plan: on ppi daily, no bleeding pending bx (3) Acute renal failure (ARF): Qualifiers: Acute renal failure type: unspecified Qualified Code(s): N17.9 - Acute kidney failure, unspecified Code(s): N17.9 - Acute kidney failure, unspecified Status: Acute Assessment and Plan: renal function improving slowly nephrology on board (4) Thrombocytopenia: Code(s): D69.6 - Thrombocytopenia, unspecified Status: Acute (5) Diabetes: Code(s): E11.9 - Type 2 diabetes mellitus without complications Status: Acute (6) Hypertension: Code(s): I10 - Essential (primary) hypertension Status: Acute (7) Chronic anemia: Code(s): D64.9 - Anemia, unspecified Status: Acute Assessment and Plan: hb stable, no signs of bleeding Subjective Date/time seen: 07/22/20 13:29 Interval history: no more diarrhea but still some nausea. EGD yesterday showed mild esophagitis and gastritis. Review of Systems Review of Systems: All systems reviewed & are unremarkable except as noted in HPI and below Exam Const: General: comfortable and no acute distress Other: obese HENMT: General nose exam: Normal nares present Eyes: General: appearance normal, both eyes and all related structures Neck: Neck: supple Resp: Auscultation: clear to auscultation bilaterally Cardio: Rate: regular rate GI: Inspection: non-distended GI Palp: Yes Soft to palpation and No Guarding due to palpation present (GI) Auscultation: normal bowel sounds Urinary Catheter: Urinary Catheter: patent and draining Skin: General skin exam: normal color Neuro: Speech: normal speech Motor exam (neuro): Normal motor muscle tone present throughout Extrem: General: normal to inspection Psych: Mental Status: mental status grossly normal Objective Data Vital Signs Vital Signs: Vital Signs - 24 hr 07/21/20 19:43 07/21/20 20:00 07/21/20 20:04 Temperature 97.3 F L Pulse Rate 92 93 92 Respiratory Rate 17 Blood Pressure 117/76 Pulse Oximetry 99 07/22/20 00:00 07/22/20 04:00 07/22/20 05:36 Temperature 97.7 F Pulse Rate 72 78 81 Respiratory Rate 16 Blood Pressure 110/44 L Pulse Oximetry 96 07/22/20 08:00 07/22/20 09:41 07/22/20 12:00 Temperature Pulse Rate 84 78 76 Respiratory Rate Blood Pressure Pulse Oximetry Intake/Output Intake/Output: Intake & Output 07/19/20 07/20/20 07/21/20 07/22/20 23:59 23:59 23:59 23:59 Intake Total 3790 5834 752 4942 Output Total 820 543 0769 Balance 2890 1493 -1150 1720 Meds/Results Medications: Active Medications Generic Name Dose Route Start Last Admin Trade Name Freq PRN Reason Stop Dose Admin Acetaminophen 650 mg 07/19/20 08:29 Acetaminophen 325 Mg Tablet PO Q6H PRN Pain Albuterol 2 puff 07/19/20 08:29 Albuterol Sulfate (*Sp) Aerosol 1 Puff INHALATION Q4H PRN Shortness Of Breath Amitriptyline HCl 75 mg 07/19/20 21:00 07/21/20 20:04 Amitriptyline Hcl 25 Mg Tablet PO 75 mg HS ROBBIE Administration Amlodipine Besylate 10 mg 07/19/20 09:00 07/22/20 09:41 Amlodipine Besylate 5 Mg Tablet PO 10 mg DAILY ROBBIE Administration Apixaban 5 mg 07/19/20 09:00 07/22/20 09:41 Apixaban 5 Mg Tablet PO 5 mg BID ROBBIE Administration Atorvastatin Calcium 20 mg 07/19/20 21:00 07/21/20 20:04 Atorvastatin 20 Mg Tablet PO 20 mg HS ROBBIE Administration Dextrose 12.5 gm 07/19/20 04:09 Dextrose 50% 25 Gm/50 Ml Syringe IV PUSH PRN PRN Hypo
--- NOTE | 2020-07-22 15:27 | PM.IMPN ---
Progress Note: A&P Assessment and Plan (1) UTI (urinary tract infection): Qualifiers: Hematuria presence: without hematuria Urinary tract infection type: site unspecified Qualified Code(s): N39.0 - Urinary tract infection, site not specified Code(s): N39.0 - Urinary tract infection, site not specified Status: Acute Assessment and Plan: Patient is on Rocephin Awaiting urine analysis culture the identification and sensitivity Deescalate antibiotics as needed 07/22/20 15:27 07/19/20 14:02 patient is 69-year-old female was recently discharged from [facility] after patient was treated with COVID-19, patient is seen title search manager but no detail is available, at the hospital patient was found to have urinary retention and London was placed or a month ago is still remains and situ, patient does complaint of dysuria and frequency her urine is suspicious for UTI with nitrite and elevated leukourea, patient is being treated with ceftriaxone, upon arrival patient has significant elevated potassium of 6, BUN of 68 and creatinine of 5.8 patient was given calcium gluconate and potassium is trending down, patient being gently hydrated, kidney ultrasound showed 2 cm lower pole right renal cyst, no hydronephrosis of either kidney. We have consulted urologist and title search manager and further recommendation to follow, will get the medical record for [facility]. Patient is a poor historian unable to provide detailed review of symptom, her daughter is present who was able to provide some history. 07/20 patient states feeling much better compared to yesterday, however complains abdominal pain and nausea after each time she eats, will consult GI for further recommendation, patient on chronic london, was seen by urologist, recommended to remove the [place] as patient had been able to urinate in the past, will remove the [place], and the voiding trial, patient creatinine is improving will continue to gently hydrate the patient patient will be seen by Nephrology and further recommendation to follow. Urine culture is growing E coli pansensitive will continue Rocephin and monitor 07/21 today patient states feeling much better and participating in physical therapy, patient had a EGD showed gastritis and reflux esophagitis patient started on Protonix 40 mg b.i.d., seen by Nephrology suspect prerenal cause of acute kidney injury from persistent vomiting, indwelling catheter and UTI, patient creatinine is improved recommended to continue to hydrate the patient, will continue to monitor the patient and further recommendation to follow. 07/22 today patient BUN and creatinine are trending down, Potassum is close to normal, patient being gently hydrated, seen by Nephrology recommending continue present management, was seen by urology and [place] catheter was removed however patient urinates on and off requiring straight catheterization will continue to give the patient opportunity urine, P patient with a UTI with E coli sensitive to Rocephin will continue, patient is clinically stable denies any fever or chills. Patient is not able to ambulate requiring assist discussed with career coach, trying to find fdc, will continue to monitor (2) Acute renal failure (ARF): Qualifiers: Acute renal failure type: unspecified Qualified Code(s): N17.9 - Acute kidney failure, unspecified Code(s): N17.9 - Acute kidney failure, unspecified Status: Acute Assessment and Plan: Unknown baseline Will obtain renal ultrasound Will obtain urine lytes Nephrology consult (3) Hyperkalemia: Code(s): E87.5 - Hyperkalemia Status: Acute Assessment and Plan: Patient received calcium gluconate A repeat value is lower Continue to monitor Subjective Date/time seen: 07/22/20 15:27 07/19/20 14:02 patient is 69-year-old female was recently discharged from [facility] after patient was treated w
[2020-07-22 17:36] LABS: Glucose Point of Care 122 mg/dl (65-105)
[2020-07-22 20:06] LABS: SARS-CoV-2 RNA PCR Negative
[2020-07-22 21:41] LABS: Glucose Point of Care 115 mg/dl (65-105)
[2020-07-22] MEDS: INSULIN GLARGINE (*BKC) 100 UNITS/ML 15 UNITS SUB-Q (22:34)
[2020-07-22] MEDS: AMITRIPTYLINE HCL 25 MG TABLET 75 MG PO (22:34)
[2020-07-22] MEDS: ATORVASTATIN 20 MG TABLET PO (22:34)
[2020-07-22] MEDS: EZETIMIBE 10 MG TABLET PO (22:34)
[2020-07-23] VITALS (11 sets, daily range): BP systolic 116–119; BP diastolic 48–58; PULSE 67–83; RESP 18; TEMP 36.1–36.5; O2SAT 95–99
[2020-07-23 05:58] LABS: Hematocrit 28.7 % (37.0-47.0); Hemoglobin 9.1 g/dL (12.0-15.0); Mean Corpuscular HGB Conc 31.7 g/dl (32-36); Mean Corpuscular Hemoglobin 29.4 pg (26-34); Mean Corpuscular Volume 92.9 fl (80-100); Mean Platelet Volume 10.5 fl (7.4-10.4); Platelet Count Result 124 k/mm3 (150-375); Red Blood Count 3.09 M/mm3 (4.2-5.4); Red Cell Distribution Width 15.9 % (11.5-14.5); White Blood Count 3.3 K/mm3 (4.5-10.0)
[2020-07-23 06:09] LABS: Albumin Level 2.3 g/dL (3.5-5.1); Anion Gap 3 mmol/L (8-16); Blood Urea Nitrogen 21 mg/dL (7-17); Calcium 8.3 mg/dL (8.4-10.2); Carbon Dioxide 24 mmol/L (22-30); Chloride 110 mmol/L (98-107); Estimated CRCL calculation 26 ml/min; Estimated Glomerular Filt Rate 23; Glucose 76 mg/dL (65-105); Magnesium 1.7 mg/dL (1.6-2.3); Phosphorus 2.8 mg/dL (2.5-4.5); Potassium 3.6 mmol/L (3.4-5.0); Sodium 137 mmol/L (137-145)
[2020-07-23 07:07] LABS: Glucose Point of Care 72 mg/dl (65-105)
[2020-07-23 08:52] LABS: Kappa\\Lambda Light Chains 2.06 (0.26-1.65); Lambda Light Chain 57.9 mg/L (5.7-26.3)
[2020-07-23] MEDS: METOPROLOL TARTRATE 50 MG TAB PO ×2 (09:12→21:13)
[2020-07-23] MEDS: ONDANSETRON HCL ODT 4 MG TABLET 8 MG PO (09:13)
[2020-07-23] MEDS: APIXABAN 5 MG TABLET PO ×2 (09:13→17:33)
[2020-07-23] MEDS: FERROUS SULFATE 324 MG TABLET PO (09:13)
[2020-07-23] MEDS: PANTOPRAZOLE 40 MG TABLET PO ×2 (09:13→21:12)
[2020-07-23] MEDS: amLODIPine BESYLATE 5 MG TABLET 10 MG PO (09:14)
--- NOTE | 2020-07-23 10:18 | P.PNNP_ITS ---
Progress Note: A&P Assessment and Plan (1) Acute renal failure (ARF): Qualifiers: Acute renal failure type: unspecified Qualified Code(s): N17.9 - Acute kidney failure, unspecified Code(s): N17.9 - Acute kidney failure, unspecified Status: Acute Assessment and Plan: * CKD * follows with Dr Edwards. possibly due to HTN, DM. * some records came. creat 1.4 on 06/07 * VIRAL * several issues likely to blame: - prerenal factors. pt had n/v for several days before admission. - indwelling london catheter and associated UTI/infection - PATRIC-I and diuretic use prior to admission * creatinine improving. today down to 2.5 * london is out. passing urine. * renal ultrasound no hydro. one cyst. * urine 'lytes nonprerenal but was on diuretics. * Ueos neg * I/O even. * developing some edema (pioglitazone and amlodipine both can cause this). * will stop ivfs. (2) Hyperkalemia: Code(s): E87.5 - Hyperkalemia Status: Acute Assessment and Plan: * precipitated by dehydration, VIRAL, and ongoing potassium supplementation and PATRIC-I use * resolved. (3) UTI (urinary tract infection): Qualifiers: Hematuria presence: without hematuria Urinary tract infection type: site unspecified Qualified Code(s): N39.0 - Urinary tract infection, site not specified Code(s): N39.0 - Urinary tract infection, site not specified Status: Acute Assessment and Plan: * E.coli by urine culture * on ceftriaxone. (4) Nausea and vomiting in adult: Code(s): R11.2 - Nausea with vomiting, unspecified Status: Acute Assessment and Plan: * related to VIRAL or UTI versus other GI pathology * Gastroenterology follow (5) Hypertension: Code(s): I10 - Essential (primary) hypertension Status: Acute Assessment and Plan: * systolic running 110-125 * on amlodipine and metoprolol * continue same tx (6) Diabetes: Code(s): E11.9 - Type 2 diabetes mellitus without complications Status: Acute Assessment and Plan: * follow accuchecks * glycemic control (7) Acidosis: Code(s): E87.2 - Acidosis Status: Acute Assessment and Plan: CO2 is good AG is only 2. checking for paraproteins. Subjective Date/time seen: 07/23/20 10:18 Interval history: patient is feeling okay. slept well. ate well yesterday she says.. no cp or sob. Exam Narrative: Exam Narrative: WDWN in NAD skin no rash head ncat lungs clear to ausc cor reg no rub. 2/6 chad. abd BS+ nontender and soft ext trace to 1+ edema. Objective Data Vital Signs Vital Signs: Vital Signs - 24 hr 07/22/20 12:00 07/22/20 14:10 07/22/20 16:00 Temperature 36.7 C Pulse Rate 76 67 72 Respiratory Rate 16 Blood Pressure 133/46 L Pulse Oximetry 99 07/22/20 19:42 07/22/20 20:00 07/22/20 22:34 Temperature 36.4 C Pulse Rate 86 88 75 Respiratory Rate 18 Blood Pressure 114/48 L Pulse Oximetry 98 07/23/20 00:00 07/23/20 04:00 07/23/20 04:37 Temperature 36.1 C L Pulse Rate 67 70 74 Respiratory Rate 18 Blood Pressure 119/53 L Pulse Oximetry 95 07/23/20
--- NOTE | 2020-07-23 10:18 | PM.PNNEP ---
Progress Note: A&P Assessment and Plan (1) Acute renal failure (ARF): Qualifiers: Acute renal failure type: unspecified Qualified Code(s): N17.9 - Acute kidney failure, unspecified Code(s): N17.9 - Acute kidney failure, unspecified Status: Acute Assessment and Plan: CKD follows with Dr Edwards. possibly due to HTN, DM. some records came. creat 1.4 on 06/07 VIRAL several issues likely to blame: - prerenal factors. pt had n/v for several days before admission. - indwelling london catheter and associated UTI/infection - PATRIC-I and diuretic use prior to admission creatinine improving. today down to 2.5 london is out. passing urine. renal ultrasound no hydro. one cyst. urine 'lytes nonprerenal but was on diuretics. Ueos neg I/O even. developing some edema (pioglitazone and amlodipine both can cause this). will stop ivfs. (2) Hyperkalemia: Code(s): E87.5 - Hyperkalemia Status: Acute Assessment and Plan: precipitated by dehydration, VIRAL, and ongoing potassium supplementation and PATRIC-I use resolved. (3) UTI (urinary tract infection): Qualifiers: Hematuria presence: without hematuria Urinary tract infection type: site unspecified Qualified Code(s): N39.0 - Urinary tract infection, site not specified Code(s): N39.0 - Urinary tract infection, site not specified Status: Acute Assessment and Plan: E.coli by urine culture on ceftriaxone. (4) Nausea and vomiting in adult: Code(s): R11.2 - Nausea with vomiting, unspecified Status: Acute Assessment and Plan: related to VIRAL or UTI versus other GI pathology Gastroenterology follow (5) Hypertension: Code(s): I10 - Essential (primary) hypertension Status: Acute Assessment and Plan: systolic running 110-125 on amlodipine and metoprolol continue same tx (6) Diabetes: Code(s): E11.9 - Type 2 diabetes mellitus without complications Status: Acute Assessment and Plan: follow accuchecks glycemic control (7) Acidosis: Code(s): E87.2 - Acidosis Status: Acute Assessment and Plan: CO2 is good AG is only 2. checking for paraproteins. Subjective Date/time seen: 07/23/20 10:18 Interval history: patient is feeling okay. slept well. ate well yesterday she says.. no cp or sob. Exam Narrative: Exam Narrative: WDWN in NAD skin no rash head ncat lungs clear to ausc cor reg no rub. 2/6 chad. abd BS+ nontender and soft ext trace to 1+ edema. Objective Data Vital Signs Vital Signs: Vital Signs - 24 hr 07/22/20 12:00 07/22/20 14:10 07/22/20 16:00 Temperature 36.7 C Pulse Rate 76 67 72 Respiratory Rate 16 Blood Pressure 133/46 L Pulse Oximetry 99 07/22/20 19:42 07/22/20 20:00 07/22/20 22:34 Temperature 36.4 C Pulse Rate 86 88 75 Respiratory Rate 18 Blood Pressure 114/48 L Pulse Oximetry 98 07/23/20 00:00 07/23/20 04:00 07/23/20 04:37 Temperature 36.1 C L Pulse Rate 67 70 74 Respiratory Rate 18 Blood Pressure 119/53 L Pulse Oximetry 95 07/23/20 08:00 07/23/20 09:12 Temperature Pulse Rate 79 82 Respiratory Rate Blood Pressure Pulse Oximetry Intake/Output Intake/Output: Intake & Output 07/20/20 07/21/20 07/22/20 07/23/20 23:59 23:59 23:59 23:59 Intake Total 7268 837 3961 480 Output Total 450 3556 452 2757 Balance 1493 -1150 2330 -920 Meds/Results Medications: Active Medications Generic Name Dose Route Start Last Admin Trade Name Freq PRN Reason Stop Dose Admin Acetaminophen 650 mg 07/19/20 08:29 Acetaminophen 325 Mg Tablet PO Q6H PRN Pain Albuterol 2 puff 07/19/20 08:29 Albuterol Sulfate (*Sp) Aerosol 1 Puff INHALATION Q4H PRN Shortness Of Breath Amitriptyline HCl 75 mg 07/19/20 21:00 07/22/20 22:34 Amitriptyline Hcl 25 M
[2020-07-23 11:12] LABS: Glucose Point of Care 163 mg/dl (65-105)
--- NOTE | 2020-07-23 12:13 | PM.IMPN ---
Progress Note: A&P Assessment and Plan (1) Gastritis: Code(s): K29.70 - Gastritis, unspecified, without bleeding Status: Acute (2) Acidosis: Code(s): E87.2 - Acidosis Status: Acute (3) Diabetes: Code(s): E11.9 - Type 2 diabetes mellitus without complications Status: Acute (4) Hypertension: Code(s): I10 - Essential (primary) hypertension Status: Acute (5) Thrombocytopenia: Code(s): D69.6 - Thrombocytopenia, unspecified Status: Acute (6) Diarrhea: Code(s): R19.7 - Diarrhea, unspecified Status: Acute (7) Nausea and vomiting in adult: Code(s): R11.2 - Nausea with vomiting, unspecified Status: Acute (8) Hyperkalemia: Code(s): E87.5 - Hyperkalemia Status: Acute (9) UTI (urinary tract infection): Qualifiers: Hematuria presence: without hematuria Urinary tract infection type: site unspecified Qualified Code(s): N39.0 - Urinary tract infection, site not specified Code(s): N39.0 - Urinary tract infection, site not specified Status: Acute (10) Acute renal failure (ARF): Qualifiers: Acute renal failure type: unspecified Qualified Code(s): N17.9 - Acute kidney failure, unspecified Code(s): N17.9 - Acute kidney failure, unspecified Status: Acute Additional Plan 07/19/20 14:02 patient is 69-year-old female was recently discharged from [facility] after patient was treated with COVID-19, patient is seen supervisor fitting but no detail is available, at the hospital patient was found to have urinary retention and [place] was placed or a month ago is still remains and situ, patient does complaint of dysuria and frequency her urine is suspicious for UTI with nitrite and elevated leukourea, patient is being treated with ceftriaxone, upon arrival patient has significant elevated potassium of 6, BUN of 68 and creatinine of 5.8 patient was given calcium gluconate and potassium is trending down, patient being gently hydrated, kidney ultrasound showed 2 cm lower pole right renal cyst, no hydronephrosis of either kidney. We have consulted urologist and supervisor fitting and further recommendation to follow, will get the medical record for [facility]. Patient is a poor historian unable to provide detailed review of symptom, her daughter is present who was able to provide some history. 07/20 patient states feeling much better compared to yesterday, however complains abdominal pain and nausea after each time she eats, will consult GI for further recommendation, patient on chronic london, was seen by urologist, recommended to remove the [place] as patient had been able to urinate in the past, will remove the [place], and the voiding trial, patient creatinine is improving will continue to gently hydrate the patient patient will be seen by Nephrology and further recommendation to follow. Urine culture is growing E coli pansensitive will continue Rocephin and monitor 07/21 today patient states feeling much better and participating in physical therapy, patient had a EGD showed gastritis and reflux esophagitis patient started on Protonix 40 mg b.i.d., seen by Nephrology suspect prerenal cause of acute kidney injury from persistent vomiting, indwelling catheter and UTI, patient creatinine is improved recommended to continue to hydrate the patient, will continue to monitor the patient and further recommendation to follow. 07/22 today patient BUN and creatinine are trending down, Potassum is close to normal, patient being gently hydrated, seen by Nephrology recommending continue present management, was seen by urology and [place] catheter was removed however patient urinates on and off requiring straight catheterization will continue to give the patient opportunity urine, P patient with a UTI with E coli sensitive to Rocephin will continue, patient is clinically stable denies any fever or chills. Patient is no
--- NOTE | 2020-07-23 15:43 | WPDGIPROGNO ---
Progress Note: A&P Assessment and Plan (1) Nausea and vomiting in adult: Code(s): R11.2 - Nausea with vomiting, unspecified Status: Acute Assessment and Plan: probably multifactorial from VIRAL, DM, UTI also had some gastritis diet as tolerated and she is improving antiemetics prn she can see me as outpatient (2) Gastritis: Code(s): K29.70 - Gastritis, unspecified, without bleeding Status: Acute Assessment and Plan: on ppi daily, no bleeding bx mild gastritis (3) Acute renal failure (ARF): Qualifiers: Acute renal failure type: unspecified Qualified Code(s): N17.9 - Acute kidney failure, unspecified Code(s): N17.9 - Acute kidney failure, unspecified Status: Acute Assessment and Plan: renal function improving slowly nephrology on board (4) Diabetes: Code(s): E11.9 - Type 2 diabetes mellitus without complications Status: Acute (5) Hypertension: Code(s): I10 - Essential (primary) hypertension Status: Acute (6) Chronic anemia: Code(s): D64.9 - Anemia, unspecified Status: Acute Assessment and Plan: hb stable, no signs of bleeding (7) UTI (urinary tract infection): Qualifiers: Hematuria presence: without hematuria Urinary tract infection type: site unspecified Qualified Code(s): N39.0 - Urinary tract infection, site not specified Code(s): N39.0 - Urinary tract infection, site not specified Status: Acute Assessment and Plan: on antibiotics Subjective Date/time seen: 07/23/20 15:43 Interval history: she is slowly doing better, less nauseous and eating better Review of Systems Review of Systems: All systems reviewed & are unremarkable except as noted in HPI and below Exam Const: General: comfortable and no acute distress Other: obese HENMT: General nose exam: Normal nares present Eyes: General: appearance normal, both eyes and all related structures Neck: Neck: supple Resp: Auscultation: clear to auscultation bilaterally Cardio: Rate: regular rate GI: Inspection: non-distended GI Palp: Yes Soft to palpation and No Guarding due to palpation present (GI) Auscultation: normal bowel sounds Skin: General skin exam: normal color Neuro: Speech: normal speech Motor exam (neuro): Normal motor muscle tone present throughout Extrem: General: normal to inspection Psych: Mental Status: mental status grossly normal Objective Data Vital Signs Vital Signs: Vital Signs - 24 hr 07/22/20 16:00 07/22/20 19:42 07/22/20 20:00 Temperature 97.6 F Pulse Rate 72 86 88 Respiratory Rate 18 Blood Pressure 114/48 L Pulse Oximetry 98 07/22/20 22:34 07/23/20 00:00 07/23/20 04:00 Temperature Pulse Rate 75 67 70 Respiratory Rate Blood Pressure Pulse Oximetry 07/23/20 04:37 07/23/20 08:00 07/23/20 09:12 Temperature 97 F L Pulse Rate 74 79 82 Respiratory Rate 18 Blood Pressure 119/53 L Pulse Oximetry 95 07/23/20 12:00 07/23/20 13:50 Temperature 97.6 F Pulse Rate 70 78 Respiratory Rate 18 Blood Pressure 116/58 L Pulse Oximetry 97 Intake/Output Intake/Output: Intake & Output 07/20/20 07/21/20 07/22/20 07/23/20 23:59 23:59 23:59 23:59 Intake Total 4145 913 9983 1420 Output Total 450 0605 383 4888 Balance 1493 -1150 2330 20 Meds/Results Medications: Active Medications Generic Name Dose Route Start Last Admin Trade Name Freq PRN Reason Stop Dose Admin Acetaminophen 650 mg 07/19/20 08:29 Acetaminophen 325 Mg Tablet PO Q6H PRN Pain Albuterol 2 puff 07/19/20 08:29 Albuterol Sulfate (*Sp) Aerosol 1 Puff INHALATION Q4H PRN Shortness Of Breath Amitriptyline HCl 75 mg 07/19/20 21:00 07/22/20 22:34 Amitriptyline Hcl 25 Mg Tablet PO 75 mg HS ROBBIE Administration Amlodipine Besylate 10 mg 07/19/20 09:00 07/23/20 09:14 Amlodipine Besylate 5 Mg Tablet PO 10 mg
[2020-07-23 16:47] LABS: Glucose Point of Care 130 mg/dl (65-105)
[2020-07-23] MEDS: TAMSULOSIN HCL 0.4 MG CAPSULE PO (17:33)
[2020-07-23] MEDS: AMITRIPTYLINE HCL 25 MG TABLET 75 MG PO (21:11)
[2020-07-23] MEDS: EZETIMIBE 10 MG TABLET PO (21:12)
[2020-07-23] MEDS: ATORVASTATIN 20 MG TABLET PO (21:12)
[2020-07-23] MEDS: INSULIN GLARGINE (*BKC) 100 UNITS/ML 15 UNITS SUB-Q (21:20)
[2020-07-23 21:37] LABS: Glucose Point of Care 128 mg/dl (65-105)
[2020-07-24] VITALS (8 sets, daily range): BP systolic 112–135; BP diastolic 45–57; PULSE 62–79; RESP 18; TEMP 35.8–36.6; O2SAT 96–100
[2020-07-24 03:27] LABS: Glucose Point of Care 63 mg/dl (65-105)
[2020-07-24 03:28] LABS: Glucose Point of Care 103 mg/dl (65-105)
[2020-07-24 05:57] LABS: Hematocrit 28.8 % (37.0-47.0); Hemoglobin 8.9 g/dL (12.0-15.0); Mean Corpuscular HGB Conc 30.9 g/dl (32-36); Mean Corpuscular Hemoglobin 29.5 pg (26-34); Mean Corpuscular Volume 95.4 fl (80-100); Mean Platelet Volume 10.4 fl (7.4-10.4); Platelet Count Result 123 k/mm3 (150-375); Red Blood Count 3.02 M/mm3 (4.2-5.4); Red Cell Distribution Width 15.9 % (11.5-14.5); White Blood Count 3.4 K/mm3 (4.5-10.0)
[2020-07-24 06:08] LABS: Albumin Level 2.2 g/dL (3.5-5.1); Anion Gap 3 mmol/L (8-16); Blood Urea Nitrogen 17 mg/dL (7-17); Calcium 8.1 mg/dL (8.4-10.2); Carbon Dioxide 22 mmol/L (22-30); Chloride 110 mmol/L (98-107); Estimated CRCL calculation 27 ml/min; Estimated Glomerular Filt Rate 25; Glucose 69 mg/dL (65-105); Magnesium 1.6 mg/dL (1.6-2.3); Phosphorus 2.8 mg/dL (2.5-4.5); Potassium 3.6 mmol/L (3.4-5.0); Sodium 135 mmol/L (137-145)
[2020-07-24 07:38] LABS: Glucose Point of Care 66 mg/dl (65-105)
--- NOTE | 2020-07-24 08:00 | P.PNNP_ITS ---
Progress Note: A&P Assessment and Plan (1) Acute renal failure (ARF): Qualifiers: Acute renal failure type: unspecified Qualified Code(s): N17.9 - Acute kidney failure, unspecified Code(s): N17.9 - Acute kidney failure, unspecified Status: Acute Assessment and Plan: * CKD * follows with Dr Edwards. possibly due to HTN, DM. * some records came. creat 1.4 on 06/07 * VIRAL * several issues likely to blame: - prerenal factors. pt had n/v for several days before admission. - indwelling london catheter and associated UTI/infection - PATRIC-I and diuretic use prior to admission * creatinine improving. today down to 2.0 * london is out. passing urine. * renal ultrasound no hydro. one cyst. * urine 'lytes nonprerenal but was on diuretics. * Ueos neg * I/O even. * developing some edema (pioglitazone and amlodipine both can cause this). * Off IV fluids. Eating well. (2) Hyperkalemia: Code(s): E87.5 - Hyperkalemia Status: Acute Assessment and Plan: * precipitated by dehydration, VIRAL, and ongoing potassium supplementation and PATRIC-I use * resolved. (3) UTI (urinary tract infection): Qualifiers: Hematuria presence: without hematuria Urinary tract infection type: site unspecified Qualified Code(s): N39.0 - Urinary tract infection, site not specified Code(s): N39.0 - Urinary tract infection, site not specified Status: Acute Assessment and Plan: * E.coli by urine culture * on ceftriaxone. (4) Nausea and vomiting in adult: Code(s): R11.2 - Nausea with vomiting, unspecified Status: Acute Assessment and Plan: * related to VIRAL or UTI versus other GI pathology * Gastroenterology following (5) Hypertension: Code(s): I10 - Essential (primary) hypertension Status: Acute Assessment and Plan: * systolic running 110-125 * on amlodipine and metoprolol * continue same tx (6) Diabetes: Code(s): E11.9 - Type 2 diabetes mellitus without complications Status: Acute Assessment and Plan: * follow accuchecks * glycemic control (7) Acidosis: Code(s): E87.2 - Acidosis Status: Acute Assessment and Plan: CO2 is good AG is only 2. [place] lambda ratio is mildly high but in CKD it is typically found to be okay up to 3.0. checking for paraproteins. Subjective Date/time seen: 07/24/20 08:00 Interval history: patient is feeling okay. slept well. ate well yesterday she says.. She still has some nausea intermittently but it does not keep her from eating. She has not had any diarrhea for the last couple of days. Exam Narrative: Exam Narrative: WDWN in NAD skin no rash head ncat lungs clear to ausc cor reg no rub. 2/6 chad. abd BS+ nontender and soft ext trace edema in the ankles, 1+ edema in the presacral region. Objective Data Vital Signs Vital Signs: Vital Signs - 24 hr 07/23/20 09:12 07/23/20 12:00 07/23/20 13:50 Temperature 36.4 C Pulse Rate 82 70 78 Respiratory Rate 18 Blood Pressure 116/58 L Pulse Oximetry 97 07/23/20 16:00 07/23/20 20:00 07/23/20 20:02 Temperature 36.5 C Pulse Rate 76 79 83 Respiratory Rate 18 Blood Pressure 118/48 L Pulse Oximetry 99
--- NOTE | 2020-07-24 08:00 | PM.PNNEP ---
Progress Note: A&P Assessment and Plan (1) Acute renal failure (ARF): Qualifiers: Acute renal failure type: unspecified Qualified Code(s): N17.9 - Acute kidney failure, unspecified Code(s): N17.9 - Acute kidney failure, unspecified Status: Acute Assessment and Plan: CKD follows with Dr Edwards. possibly due to HTN, DM. some records came. creat 1.4 on 06/07 VIRAL several issues likely to blame: - prerenal factors. pt had n/v for several days before admission. - indwelling london catheter and associated UTI/infection - PATRIC-I and diuretic use prior to admission creatinine improving. today down to 2.0 london is out. passing urine. renal ultrasound no hydro. one cyst. urine 'lytes nonprerenal but was on diuretics. Ueos neg I/O even. developing some edema (pioglitazone and amlodipine both can cause this). Off IV fluids. Eating well. (2) Hyperkalemia: Code(s): E87.5 - Hyperkalemia Status: Acute Assessment and Plan: precipitated by dehydration, VIRAL, and ongoing potassium supplementation and PATRIC-I use resolved. (3) UTI (urinary tract infection): Qualifiers: Hematuria presence: without hematuria Urinary tract infection type: site unspecified Qualified Code(s): N39.0 - Urinary tract infection, site not specified Code(s): N39.0 - Urinary tract infection, site not specified Status: Acute Assessment and Plan: E.coli by urine culture on ceftriaxone. (4) Nausea and vomiting in adult: Code(s): R11.2 - Nausea with vomiting, unspecified Status: Acute Assessment and Plan: related to VIRAL or UTI versus other GI pathology Gastroenterology following (5) Hypertension: Code(s): I10 - Essential (primary) hypertension Status: Acute Assessment and Plan: systolic running 110-125 on amlodipine and metoprolol continue same tx (6) Diabetes: Code(s): E11.9 - Type 2 diabetes mellitus without complications Status: Acute Assessment and Plan: follow accuchecks glycemic control (7) Acidosis: Code(s): E87.2 - Acidosis Status: Acute Assessment and Plan: CO2 is good AG is only 2. [place] lambda ratio is mildly high but in CKD it is typically found to be okay up to 3.0. checking for paraproteins. Subjective Date/time seen: 07/24/20 08:00 Interval history: patient is feeling okay. slept well. ate well yesterday she says.. She still has some nausea intermittently but it does not keep her from eating. She has not had any diarrhea for the last couple of days. Exam Narrative: Exam Narrative: WDWN in NAD skin no rash head ncat lungs clear to ausc cor reg no rub. 2/6 chad. abd BS+ nontender and soft ext trace edema in the ankles, 1+ edema in the presacral region. Objective Data Vital Signs Vital Signs: Vital Signs - 24 hr 07/23/20 09:12 07/23/20 12:00 07/23/20 13:50 Temperature 36.4 C Pulse Rate 82 70 78 Respiratory Rate 18 Blood Pressure 116/58 L Pulse Oximetry 97 07/23/20 16:00 07/23/20 20:00 07/23/20 20:02 Temperature 36.5 C Pulse Rate 76 79 83 Respiratory Rate 18 Blood Pressure 118/48 L Pulse Oximetry 99 07/23/20 21:13 07/24/20 00:00 07/24/20 04:00 Temperature Pulse Rate 80 62 76 Respiratory Rate Blood Pressure Pulse Oximetry 07/24/20 06:25 Temperature 36.6 C Pulse Rate 77 Respiratory Rate 18 Blood Pressure 112/45 L Pulse Oximetry 96 Intake/Output Intake/Output: Intake & Output 07/21/20 07/22/20 07/23/20 07/24/20 23:59 23:59 23:59 23:59 Intake Total 150 3130 2160 240 Output Total 9567 707 0590 900 Balance -1150 2380 760 -660 Meds/Results Medications: Active Medications Generic Name Dose Route Start Last Admin Trade Name Freq PRN Reason Stop Dose Admin Acetaminophen 650 mg 07/19/20 08:29 Acetaminophen 325 Mg Ta
[2020-07-24] MEDS: amLODIPine BESYLATE 5 MG TABLET 10 MG PO (08:04)
[2020-07-24] MEDS: polyethylene glycoL 3350 17 GM POWD.PACK PO (08:04)
[2020-07-24] MEDS: PANTOPRAZOLE 40 MG TABLET PO (08:04)
[2020-07-24] MEDS: APIXABAN 5 MG TABLET PO (08:04)
[2020-07-24] MEDS: METOPROLOL TARTRATE 50 MG TAB PO (08:04)
--- NOTE | 2020-07-24 08:12 | PC.NURSE ---
Patient refused oral glucose gel for AM BG of 66. Apple juice given.
[2020-07-24] MEDS: TAMSULOSIN HCL 0.4 MG CAPSULE PO (09:03)
[2020-07-24 09:05] LABS: Glucose Point of Care 75 mg/dl (65-105)
[2020-07-24 11:56] LABS: Glucose Point of Care 118 mg/dl (65-105)
[2020-07-24 16:22] LABS: Chloride Rand Ur 64 mmol/L (32-290); Chloride/Creatinine Rand Ur 94 (38-318); Creatinine Random Urine 68 mg/dL (20-275)
--- NOTE | 2020-07-24 17:23 | PM.DS ---
DS: Admitting Diagnosis Admitting Diagnosis Admitting Diagnosis: (1) UTI (urinary tract infection): Code(s): N39.0 - Urinary tract infection, site not specified Status: Acute (2) Acute renal failure (ARF): Code(s): N17.9 - Acute kidney failure, unspecified Status: Acute (3) Hyperkalemia: Code(s): E87.5 - Hyperkalemia Status: Acute DS: Discharge Diagnosis Discharge Diagnosis (1) Acute kidney injury superimposed on chronic kidney disease: Code(s): N17.9 - Acute kidney failure, unspecified; N18.9 - Chronic kidney disease, unspecified Status: Acute (2) CKD (chronic kidney disease), stage III: Code(s): N18.30 - Chronic kidney disease, stage 3 unspecified Status: Acute (3) Gastritis: Code(s): K29.70 - Gastritis, unspecified, without bleeding Status: Acute (4) Diabetes: Code(s): E11.9 - Type 2 diabetes mellitus without complications Status: Acute (5) Hypertension: Code(s): I10 - Essential (primary) hypertension Status: Acute (6) Thrombocytopenia: Code(s): D69.6 - Thrombocytopenia, unspecified Status: Acute (7) UTI (urinary tract infection): Qualifiers: Hematuria presence: without hematuria Urinary tract infection type: site unspecified Qualified Code(s): N39.0 - Urinary tract infection, site not specified Code(s): N39.0 - Urinary tract infection, site not specified Status: Acute (8) Hyperkalemia: Code(s): E87.5 - Hyperkalemia Status: Acute (9) Pancytopenia: Code(s): D61.818 - Other pancytopenia Status: Acute DS: Summary Hospital Course Reason for hospitalization: L flank pain Hospital Course: 69 yo F admitted w chronic indwelling london catheter, UTI, hyperkalemia, and acute on chronic renal failure. Urology was consulted and recommended catheter exchange and voiding trial prior to dc. Urine culture grew E. coli and was susceptible to Rocephin. Nephrology was consulted for VIRAL on CKD3 and hyperkalemia. Renal function improved during hospitalization. Unfortunately, she was unable to empty her bladder during voiding trial and with greater than 500cc urinary catheter was reinserted. Pt advised to f/u w PCP, nephrology, and urology after dc. May benefit from referral to hematology if pancytopenia does not resolve after recovery. Pt declined SNF and was discharged home in stable condition w [facility], to care of family. cipro 3 days ordered at dc to complete 7 day abx course. Metformin held at dc until cleared by Urology or PCP to restart. Time Spent with Patient Time attestation: Total time spent providing and/or coordinating discharge services: > 30min Exam Narrative: Exam Narrative: GEN: comfortable, NAD, obese HEENT: eyes are clear and none icteric, EOMI, poor dentition LUNGS:CTA HEART: RR S1S2 Lower extremities: 1+ edema SKIN: nonjaundiced Neuro: grossly intact. DS: Data Data Completed and Pending Completed studies during hospitalization: Pending at discharge 07/21/20 12:44 Surgical [PTH] Routine Labs on day of discharge: Labs from last 24 hours 07/24/20 07/24/20 07/24/20 11:53 09:02 07:36 WBC RBC Hgb Hct MCV MCH MCHC RDW Plt Count MPV Sodium Potassium Chloride Carbon Dioxide Anion Gap BUN Creatinine Estim Creat Clear Calc Estimated GFR Glucose POC Capillary Glucose 118 H 75 66 Calcium Phosphorus Magnesium Albumin Ur Random Creatinine Ur Random Chloride U Random Chloride/Creat Urine Immunofixation 07/24/20 07/24/20 07/24/20 05:41 05:41 03:22 WBC 3.4 L RBC 3.02 L Hgb 8.9 L Hct 28.8 L MCV 95.4 MCH 29.5 MCHC 30.9 L RDW 15.9 H Plt Count 123 L MPV 10.4 Sodium 135 L Potassium 3.6 Chloride 110 H Carbon Dioxide 22 Anion Gap 3 L BUN 17 Creatinine 2.00 H Est
== END 2020-07-24 16:50 | disposition home health service (06) | DRG 699 ==
LOC: ANHED 07-19 04:12 → ANH3MED 07-20 02:41
PROVIDERS: Internal Medicine Gastroenterology; Internal Medicine Nephrology; Admitting Provider Internal Medicine; Emergency Provider Emergency Medicine; PCP Family Medicine; Visit Provider Family Medicine
PROC: 0DJ08ZZ Inspection of Upper Intestinal Tract, Via Natural or Artificial Opening Endoscopic (ICD-10-PCS; CPT 43235; principal; 2020-07-21 14:00)
DX: T83.511A Infection and inflammatory reaction due to indwelling urethral catheter, initial encounter (principal); N17.9 Acute kidney failure, unspecified; D61.818 Other pancytopenia; E87.2 Acidosis; K22.10 Ulcer of esophagus without bleeding; N39.0 Urinary tract infection, site not specified; B96.20 Unspecified Escherichia coli [E. coli] as the cause of diseases classified elsewhere; Z20.822 Contact with and (suspected) exposure to COVID-19; K44.9 Diaphragmatic hernia without obstruction or gangrene; K21.00 Gastro-esophageal reflux disease with esophagitis, without bleeding; K29.70 Gastritis, unspecified, without bleeding; E87.5 Hyperkalemia; D64.9 Anemia, unspecified; E11.22 Type 2 diabetes mellitus with diabetic chronic kidney disease; I25.10 Atherosclerotic heart disease of native coronary artery without angina pectoris; I12.9 Hypertensive chronic kidney disease with stage 1 through stage 4 chronic kidney disease, or unspecified chronic kidney disease; N18.30 Chronic kidney disease, stage 3 unspecified; D69.6 Thrombocytopenia, unspecified; K21.9 Gastro-esophageal reflux disease without esophagitis; E78.00 Pure hypercholesterolemia, unspecified; E66.9 Obesity, unspecified; Z68.38 Body mass index [BMI] 38.0-38.9, adult; Z86.16 Personal history of COVID-19; Z90.49 Acquired absence of other specified parts of digestive tract; Z90.710 Acquired absence of both cervix and uterus
CPT/HCPCS: 36415; 74176; 76775; 80053; 80069; 81001; 81050; 82436; 82570; 82948; 83605; 83735; 83883; 84132; 84156; 84300; 84484; 85025; 85027; 85999; 86334; 86335; 87077; 87086; 87088; 87186; 88305; 93005; 93306; 96361; 96374; 96375; 97110; 97161; 97165; 97530; 97535; 99291; A9270; C9803; J0610; J0696; J1815; J2704; J3010; J3475; J7030; J7120; U0003; U0005

== ENCOUNTER 2021-05-28 00:28 | Emergency (ER) | payer OTHER, SELFPAY ==
[2021-05-28] VITALS (14 sets, daily range): BP systolic 148–177; BP diastolic 64–91; PULSE 59–73; RESP 12–24; TEMP 36.4; O2SAT 99–100
--- NOTE | ~2021-05-28 | CT_ITS ---
EXAMINATION: CT brain wo con DATE: 05/28/2021 01:01 INDICATION: Dizziness. TECHNIQUE: Computed tomography (CT) of the head was performed without intravenous contrast. The dose- length product was 605.33 mGy-cm. Automated exposure control and iterative reconstruction technique w ere employed. COMPARISON: None FINDINGS: There are chronic infarctions of the left parietal lobe and left cerebellum with encephalom alacia. There is intracranial atherosclerosis. No acute intracranial hemorrhage, infarction, mass or mass effect. There are scattered mild periventricular and subcortical white matter changes, most like ly related to small vessel ischemic disease (microangiopathy). Paranasal sinuses and mastoids are pne umatized. No depressed skull fractures. IMPRESSION: 1. No acute intracranial abnormality. 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 3: Chronic age-related findings. Reviewed, dictated and finalized at location A. IMPRESSION: 1. No acute intracranial abnormality. 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 3: Chronic age-related findings.
--- NOTE | 2021-05-28 00:37 | ECG_ITS ---
Measurements Intervals [place] Rate: 71 P: 68 AR: 145 QRS: -35 QRSD: 116 T: 62 QT: 391 QTc: 427 Interpretive Statements SINUS RHYTHM LEFT VENTRICULAR HYPERTROPHY [VOLTAGE CRITERIA PLUS LAE OR QRS WIDENING] ABNORMAL ECG COMPARED TO ECG 07/19/2020 16:15:00 LEFT-AXIS DEVIATION NOW PRESENT Electronically Signed On 05-28-2021 15:51:23 CDT by Osorio Monreal M.D.
--- NOTE | 2021-05-28 00:56 | ED.DIZZY ---
HPI - Dizziness General Chief Complaint: Dizziness Stated Complaint: dizzy, nauseated, htn Time Seen by Provider: 05/28/21 00:34 Source: patient Mode of arrival: ambulatory Limitations: no limitations History of Present Illness HPI Narrative: Patient is a 70-year-old female complaining of elevated blood pressure accompanied by nausea and dizziness that started today. Patient was seen at another ER and they only gave her Zofran and sent her home, did not do any blood work or anything according to daughter. Patient denies any speech or visual disturbance, focal weakness or numbness, chest pain, shortness of breath, abdominal pain, nausea, vomiting, diaphoresis, fever or chills. Related Data Home Medications Medication Instructions Recorded Confirmed Eliquis 5 mg PO BID 07/19/20 07/21/20 amitriptyline 75 mg PO HS 07/19/20 07/21/20 atorvastatin 20 mg PO HS 07/19/20 07/21/20 ezetimibe [Zetia] 10 mg PO HS 07/19/20 07/21/20 famotidine 20 mg PO BID 07/19/20 07/21/20 lisinopril 5 mg PO DAILY 07/19/20 07/21/20 metoprolol tartrate 50 mg PO BID 07/19/20 07/21/20 pioglitazone [Actos] 45 mg PO DAILY 07/19/20 07/21/20 Saccharomyces boulardii [Daily PO 12/08/20 Probiotic (S. boulardii)] calcium citrate 200 mg (950 mg) 200 mg PO DAILY 12/08/20 tablet clonazepam 0.5 mg tablet 0.5 mg PO QHS 12/08/20 insulin glargine 100 unit/mL (3 17 unit SUBCUT QPM ml 12/08/20 mL) subcutaneous pen metronidazole 500 mg tablet 500 mg PO Q12H 12/08/20 potassium chloride 20 mEq 20 meq PO DAILY 12/08/20 tablet,extended release famotidine 05/28/21 furosemide 05/28/21 Allergies Allergy/AdvReac Type Severity Reaction Status Date / Time PATRIC Inhibitors Allergy Unknown Unknown Verified 05/28/21 00:42 brimonidine Allergy Unknown Legs/feet Verified 05/28/21 00:42 swelling hydromorphone Allergy Unknown low blood Verified 05/28/21 00:42 pressure metformin Allergy Unknown Unknown Verified 05/28/21 00:42 metoclopramide Allergy Unknown TARDIVE Verified 05/28/21 00:42 DYSKINESIA morphine Allergy Unknown Hives Verified 05/28/21 00:42 NSAIDS (Non-Steroidal Allergy Unknown Unknown Verified 05/28/21 00:42 Anti-Inflamma pseudoephedrine Allergy Unknown Unknown Verified 05/28/21 00:42 timolol Allergy Unknown Legs/feet Verified 05/28/21 00:42 swelling Review of Systems Review of Systems: All systems reviewed & are unremarkable except as noted in HPI and below Constitutional: Constitutional: Denies body ache(s), Denies chills, Denies excessive sweating, Denies fatigue, Denies fever(s), Denies headache(s), Denies lethargy, Denies malaise, Denies weakness and Denies weight loss Eyes: Eyes: Denies blurry vision, Denies change in vision and Denies loss of vision ENT: Denies dizziness, Denies ear discharge, Denies headache(s), Denies lip swelling, Denies epistaxis, Denies nasal congestion, Denies neck pain, Denies throat swelling and Denies tongue swelling Cardiovascular: Cardiovascular: Denies chest pain, Denies chest pain at rest, Denies chest pain with activity, Denies diaphoresis, Denies rapid heart rate, Denies edema, Denies irregular heart rhythm, Denies lightheadedness, Denies palpitations, Denies dyspnea and Denies dyspnea on exertion Respiratory: Respiratory: Denies chest congestion, Denies cough, Denies hemoptysis, Denies dyspnea and Denies dyspnea on exertion Gastrointestinal: Gastrointestinal: Denies abdominal pain, Denies melena, Denies hematochezia, Denies diarrhea, Denies vomiting and Denies hematemesis Musculoskeletal: Musculoskeletal: Denies abnormal gait, Denies deformity, Denies joint swelling, Denies limited range of motion, Denies neck pain and Denies numbness Neurologic: Denies Abnormal speech present, Denies abnormal gait, Denies confusion, Denies headache(s), Denies focal weakness, Denies loss of vision, Denies numbness, Denies Other visual disturbances, Denies Sensory deficit (Neuro) and Denies weakness Psychiatric:
[2021-05-28 01:28] LABS: Basophils Percent Auto 0.9 % (0.2-1.2); Eosinophils Absolute Auto 0.1 K/mm3 (0-0.3); Eosinophils Percent Auto 2.3 % (0-4.4); Hematocrit 39.9 % (37.0-47.0); Hemoglobin 12.5 g/dL (12.0-15.0); Immature Granulocyte Absolute 0.01 K/mm3 (0.00-0.031); Immature Granulocyte Percent A 0.2 % (0-0.5); Immature Platelet Fraction Pct 4.8 % (0.9-11.2); Lymphocytes Absolute Auto 0.79 K/mm3 (0.9-3.2); Lymphocytes Percent Auto 17.8 % (18.3-44.2); Mean Corpuscular HGB Conc 31.3 g/dl (32-36); Mean Corpuscular Hemoglobin 30.4 pg (26-34); Mean Corpuscular Volume 97.1 fl (80-100); Mean Platelet Volume 11.3 fl (7.4-10.4); Monocytes Absolute Auto 0.3 K/mm3 (0.1-0.6); Monocytes Percent Auto 5.6 % (2.6-8.5); Neutrophils Absolute Auto 3.2 K/mm3 (1.3-6.7); Neutrophils Percent Auto 73.2 % (45.5-73.1); Platelet Count Result 141 k/mm3 (150-375); Red Blood Count 4.11 M/mm3 (4.2-5.4); White Blood Count 4.4 K/mm3 (4.5-10.0)
[2021-05-28 01:37] LABS: Alanine Aminotransferase 14 U/L (4-35); Albumin Level 4.2 g/dL (3.5-5.1); Alkaline Phosphatase 127 U/L (38-126); Anion Gap 8 mmol/L (8-16); Aspartate Amino Transferase 34 U/L (14-36); Bilirubin,Total 0.4 mg/dL (0.2-1.3); Blood Urea Nitrogen 32 mg/dL (7-17); Calcium 9.3 mg/dL (8.4-10.2); Carbon Dioxide 28 mmol/L (22-30); Chloride 104 mmol/L (98-107); Estimated CRCL calculation 41 ml/min; Estimated Glomerular Filt Rate 40; Glucose 203 mg/dL (65-110); Potassium 4.1 mmol/L (3.4-5.0); Sodium 140 mmol/L (137-145)
[2021-05-28] MEDS: PROMETHAZINE HCL 25 MG/ML AMPUL 12.5 MG IV PUSH (01:44)
[2021-05-28] MEDS: SODIUM CHLORIDE 0.9% IV 100 ML 500 ML (01:44)
[2021-05-28 02:22] LABS: Troponin I < 0.012 ng/mL (0.000-0.034)
== END 2021-05-28 03:45 | disposition home or self-care (01) ==
PROVIDERS: Emergency Provider Emergency Medicine; PCP Family Medicine
DX: R42 Dizziness and giddiness (principal); Z79.01 Long term (current) use of anticoagulants; D64.9 Anemia, unspecified; D69.6 Thrombocytopenia, unspecified; Z86.16 Personal history of COVID-19; Z79.4 Long term (current) use of insulin; I51.7 Cardiomegaly; R94.31 Abnormal electrocardiogram [ECG] [EKG]
CPT/HCPCS: 36415; 70450; 80053; 84484; 85025; 85055; 93005; 96361; 96374; 99284; J2550

== ENCOUNTER 2024-05-03 14:10 | Emergency (ER) | payer OTHER, SELFPAY ==
--- NOTE | 2024-05-03 14:21 | ED.GENADULT ---
HPI - General Adult General Chief complaint: Extremity Problem,Nontraumatic Stated complaint: Right Hand Pain Time Seen by Provider: 05/03/24 14:21 Source: patient, RN notes reviewed and old records reviewed Mode of arrival: ambulatory Limitations: no limitations History of Present Illness HPI narrative: 73-year-old female presents to the [facility] with her daughter with right hand and wrist pain, swelling. Unsure of any direct injury. Tenderness is noted to the dorsal aspect of the right wrist. States that started Tuesday, did not think much of it when she saw her primary care provider on Tuesday morning. patient's daughter states that she may have hit it on her night stand, she does move around a lot at night. Onset (ago): day(s) (2) Related Data Home Medications ?Medication ?Instructions ?Recorded ?Confirmed ?Last Taken ?Type amitriptyline 75 mg tablet 75 mg PO HS 07/19/20 05/03/24 07/21/20 08:39 History atorvastatin 20 mg tablet 20 mg PO HS 07/19/20 05/03/24 Unknown History ezetimibe 10 mg tablet (Zetia) 10 mg PO HS 07/19/20 05/03/24 Unknown History famotidine 20 mg tablet 20 mg PO BID 07/19/20 05/03/24 Unknown History lisinopril 5 mg tablet 5 mg PO DAILY 07/19/20 05/03/24 Unknown History metoprolol tartrate 50 mg tablet 50 mg PO BID 07/19/20 05/03/24 07/21/20 08:39 History calcium citrate 200 mg PO DAILY 12/08/20 05/03/24 Unknown History clonazepam 0.5 mg tablet 0.5 mg PO QHS 12/08/20 05/03/24 Unknown History insulin glargine 100 unit/mL (3 17 unit subcut QPM 12/08/20 05/03/24 Unknown History mL) subcutaneous pen (Lantus Solostar U-100 Insulin) potassium chloride 20 mEq 20 meq PO DAILY 12/08/20 05/03/24 Unknown History tablet,extended release furosemide 20 mg tablet 20 mg PO DAILY 05/28/21 05/03/24 Unknown History apixaban 5 mg tablet (Eliquis) 5 mg PO Q12H 05/03/24 05/03/24 Unknown History dorzolamide 2 % eye drops 1 drp EACH EYE BID 05/03/24 05/03/24 Unknown History empagliflozin 10 mg tablet 10 mg PO DAILY 05/03/24 05/03/24 Unknown History (Jardiance) ergocalciferol (vitamin D2) 1,250 1,250 mcg PO WEEKLY 05/03/24 05/03/24 Unknown History mcg (50,000 unit) capsule omeprazole 40 mg capsule,delayed 40 mg PO DAILY 05/03/24 05/03/24 Unknown History release semaglutide 7 mg tablet (Rybelsus) 7 mg PO DAILY 05/03/24 05/03/24 Unknown History Allergies Allergy/AdvReac Type Severity Reaction Status Date / Time HERBIE Inhibitors Allergy Unknown Unknown Verified 05/03/24 14:13 brimonidine Allergy Unknown Legs/feet Verified 05/03/24 14:13 swelling hydromorphone Allergy Unknown low blood Verified 05/03/24 14:13 pressure metformin Allergy Unknown Unknown Verified 05/03/24 14:13 metoclopramide Allergy Unknown TARDIVE Verified 05/03/24 14:13 DYSKINESIA morphine Allergy Unknown Hives Verified 05/03/24 14:13 NSAIDS (Non-Steroidal Allergy Unknown Unknown Verified 05/03/24 14:13 Anti-Inflamma pseudoephedrine Allergy Unknown Unknown Verified 05/03/24 14:13 timolol Allergy Unknown Legs/feet Verified 05/03/24 14:13 swelling Review of Systems Review of Systems: All systems reviewed & are unremarkable except as noted in HPI and below Constitutional: Constitutional: Reports no additional constitutional complaints ENT: Reports system reviewed and no additional complaints, except as documented Cardiovascular: Cardiovascular: Reports no additional cardiovascular complaints, Denies chest pain and Denies dyspnea Respiratory: Respiratory: Reports no additional respiratory complaints, Denies chest congestion, Denies cough and Denies dyspnea Musculoskeletal: Musculoskeletal: Reports as per HPI, Reports arthralgias and Reports joint swelling Integumentary/Breasts: Skin/Breast: Reports system reviewed and no additional complaints, except as docu PMFSH Past Medical History Medical History Gastritis Acidosis Thrombocytopenia Diarrhea History of COVID-19 Chronic anemia Nausea and vomiting in adult Family History Family History Father Hypertension Family history of diabetes mellitus in first degree relative Family history of coronary artery disease Sibling Hypertension Family history of diabetes mellitus in first degree relative Family history of coronary artery disease Social History Social History Smoking status: Never smoker Second hand tobacco smoke exposure: No Alcohol intake: never Substance use: never Living arrangements: assisted living Gender identity (if verbalized by the patient): Female Spiritual care concerns: No Comments At the time of my signature, I reviewed and agree with the nursing past medical, surgical, social, and family history. There is no relevant family history pertinent to the patient complaint. Exam Const: General: cooperative, comfortable, no acute distress, well developed, alert, ill appearing chronically and well nourished Nutritional Appearance: well nourished and obese Orientation/consciousness: patient oriented x3 Limitations: no limitations HENMT: Head: normal to inspection Eyes: General: appearance normal, both eyes and all related structures Alignment and Position: alignment normal Neck: Neck: normal visual inspection, full ROM, no lymphadenopathy and no meningeal signs Chest: Chest palpation & inspection: normal inspection of the chest Resp: Effort & Inspection: normal respiratory effort and able to speak in complete sentences Cardio: Rate: regular rate Skin: General skin exam: normal color and no rashes or lesions noted Wounds: no wounds Neuro: General: patient oriented x3, gait normal, moves all extremities and no meningeal signs Cognition (Neuro): normal cognition Speech: normal speech Gait exam (Neuro): Normal gait present Extrem: General: normal to inspection, full ROM, capillary refill normal and normal gait Right upper extremity: wrist tenderness of the dorsal wrist, swelling of the dorsal wrist, abnormal ROM pain with active ROM during and ecchymosis; no unusual warmth, no abrasions, no lacerations, no crepitus, no foreign body and no penetrating wound Psych: Appearance: grossly normal and well kempt Mental Status: mental status grossly normal Speech and movement: Normal speech and movement present and Clear speech present Affect: normal affect Attitude: cooperative Course Course Level of Care: Express Care Visit Vital Signs Vital signs: Vital Signs Temperature 97.0 F L 05/03/24 14:23 Pulse Rate 56 L 05/03/24 14:23 Respiratory Rate 16 05/03/24 14:23 Blood Pressure 155/59 H 05/03/24 14:23 Pulse Oximetry 100 05/03/24 14:23 Oxygen Delivery Room Air 05/03/24 14:23 Temperature 97.0 F L 05/03/24 14:23 Pulse Rate 56 L 05/03/24 14:23 Respiratory Rate 16 05/03/24 14:23 Blood Pressure 155/59 H 05/03/24 14:23 Pulse Oximetry 100 05/03/24 14:23 Oxygen Delivery Room Air 05/03/24 14:23 Reviewed Medical Decision Making MDM Narrative Medical decision making narrative: Patient sitting comfortably in exam room. Nontoxic, vitals stable. Patient in no acute distress Patient presents with daughter with pain and swelling to the right dorsal wrist. X-ray is negative shows significant arthritis. Most likely contusion Herbie wrap placed for comfort by RN. Discussed the importance of following up with primary care provider. Discharge instructions reviewed with patient, as well as provided in writing per nursing staff. The instructions also include specific and strict return/GO TO THE ER as well as f/u information. All questions have been answered, and the patient deny any further questions with discharge and discharge plan. Some parts of this dictation were generated by voice recognition software and may contain typographical and/or grammatical inaccuracies. Differential Diagnosis Differential Diagnosis: Wrist contusion, wrist sprain, wrist fracture Medical Records Medical records reviewed: Yes I reviewed the external patient's medical records. Vital Signs Vital Signs: Vital Signs Temperature 97.0 F L 05/03/24 14:23 Pulse Rate 56 L 05/03/24 14:23 Respiratory Rate 16 05/03/24 14:23 Blood Pressure 155/59 H 05/03/24 14:23 Pulse Oximetry 100 05/03/24 14:23 Oxygen Delivery Room Air 05/03/24 14:23 Temperature 97.0 F L 05/03/24 14:23 Pulse Rate 56 L 05/03/24 14:23 Respiratory Rate 16 05/03/24 14:23 Blood Pressure 155/59 H 05/03/24 14:23 Pulse Oximetry 100 05/03/24 14:23 Oxygen Delivery Room Air 05/03/24 14:23 Reviewed Lab Data Lab results reviewed: Yes I reviewed the patient's lab results. Labs: Reviewed Imaging Data Radiologist's impression: EXAMINATION: XR wrist RT min 3V DATE: 05/03/2024 14:43 INDICATION: Right wrist pain and swelling. TECHNIQUE: 4 views of right wrist were obtained. COMPARISON: None. FINDINGS: Alignment is normal. No fracture. There is mild osteoarthritis of first carpometacarpal joint. IMPRESSION: 1. Mild osteoarthritis of first carpometacarpal joint. Critical Care Time Critical Care Time Critical Care Time: No Discharge Plan Discharge Clinical Impression: Contusion of hand, right, Osteoarthritis Patient Disposition: Home, Self-Care Condition: Stable Instructions: Antibiotic Form Additional Instructions: take Tylenol as needed for pain rest, ice and elevate. Wear Herbie wrap for comfort. Do not wrap too tightly. If no improvement in a week please follow-up with primary care provider for worsening symptoms go directly to the emergency room Patient Language: Trinid[place] Prescriptions: No Action Jardiance 10 mg tablet 10 mg PO DAILY ergocalciferol (vitamin D2) 1,250 mcg (50,000 unit) capsule 1,250 mcg PO WEEKLY Eliquis 5 mg tablet 5 mg PO Q12H dorzolamide 2 % drops 1 drp EACH EYE BID omeprazole 40 mg capsule,delayed release(DR/EC) 40 mg PO DAILY Rybelsus 7 mg tablet 7 mg PO DAILY calcium citrate 200 mg (950 mg) tablet 200 mg PO DAILY potassium chloride 20 mEq tablet extended release 20 meq PO DAILY clonazepam 0.5 mg tablet 0.5 mg PO QHS Rx Instructions: administer 30 minutes before bedtime Lantus Solostar U-100 Insulin 100 unit/mL (3 mL) insulin pen 17 unit subcut QPM furosemide 20 mg tablet 20 mg PO DAILY atorvastatin 20 mg tablet 20 mg PO HS amitriptyline 75 mg tablet 75 mg PO HS famotidine 20 mg tablet 20 mg PO BID metoprolol tartrate 50 mg tablet 50 mg PO BID lisinopril 5 mg tablet 5 mg PO DAILY ezetimibe [Zetia] 10 mg Tablet 10 mg PO HS Follow-up/Referrals: Amadeo,Shirley Pizarro NP [Primary Care Provider] - 2 Weeks ( [facility] follow-up) Time of Disposition: 14:57
[2024-05-03 14:23] VITALS: BP 155/59; PULSE 56; RESP 16; TEMP 36.1; O2SAT 100
== END 2024-05-03 15:05 | disposition home or self-care (01) ==
PROVIDERS: Emergency Provider Nurse Practitioner; PCP Nurse Practitioner Family
DX: S60.221A Contusion of right hand, initial encounter (principal); X58.XXXA Exposure to other specified factors, initial encounter; M18.11 Unilateral primary osteoarthritis of first carpometacarpal joint, right hand; D69.6 Thrombocytopenia, unspecified; Z86.16 Personal history of COVID-19
CPT/HCPCS: 73110; 99213; G0463